=== PATIENT | female | born 1945 | race Caucasian/White ===

== ENCOUNTER 2021-12-21 13:19 | Outpatient (CLI) | payer MEDICARE, BC, SELFPAY ==
--- NOTE | 2021-12-21 13:29 | ECHO_ITS ---
Patient Info Name: Bailey Sharma Age: 76 years : 1945 Gender: Female Ht: 61 in Wt: 145 lbs BSA: 1.70 m2 HR: 47 bpm BP: 167 / 86 mmHg Technical Quality: Good Exam Date: 12/21/2021 1:56 PM Exam Location: [facility] Patient Status: Outpatient Admit Date: 12/21/2021 Staff Ordering Physician: Wyatt Salazar DO Parts Order And Stock Clerk: Renee Norman RDCS Attending Provider: Wyatt Salazar DO Referring Physician: Martin GONZALEZ; Exam Type: CA echo doppler color flow Study Info Indications I35.1 - Nonrheumatic aortic (valve) insufficiency Complete two-dimensional, color flow and Doppler transthoracic echocardiogram is performed. Summary 1. Complete two-dimensional, color flow and Doppler transthoracic echocardiogram is performed. 2. Left ventricular chamber dimension is normal. 3. Left ventricular systolic function is normal, estimated at 60-65%. 4. The left ventricular diastolic function is abnormal. 5. E/e' 13 is mildly elevated. 6. Global longitudinal strain is mildly abnormal at -16.7%. 7. Left atrial chamber dimension is moderately enlarged. 8. There is mild aortic valve sclerosis. 9. There is mild to moderate aortic valve regurgitation. 10. The mitral valve has moderately calcified annulus. 11. There is mild to moderate mitral valve regurgitation. 12. No pulmonary hypertension, estimated pulmonary arterial systolic pressure is 32 mmHg. Left Ventricle E/e' 13 is mildly elevated. Global longitudinal strain is mildly abnormal at -16.7%. Left ventricular chamber dimension is normal. Left ventricular systolic function is normal, estimated at 60-65%. The left ventricular diastolic function is abnormal. Right Ventricle Right ventricular chamber dimension is normal. Right ventricular systolic function is normal. Left Atria Left atrial chamber dimension is moderately enlarged. Right Atria Right atrial chamber dimension is normal. Aortic Valve The aortic valve is trileaflet. There is mild aortic valve sclerosis. There is no aortic valve stenosis. There is mild to moderate aortic valve regurgitation. Pulmonic Valve There is no pulmonic regurgitation. Mitral Valve The mitral valve has moderately calcified annulus. There is no mitral valve stenosis. There is mild to moderate mitral valve regurgitation. Tricuspid Valve There is no tricuspid valve regurgitation. No pulmonary hypertension, estimated pulmonary arterial systolic pressure is 32 mmHg. Pericardium/Pleural There is no pericardial effusion. Inferior Vena Cava Normal inferior vena cava with >50% collapse upon inspiration consistent with normal right atrial pressure, 5 mmHg. Aorta The aortic root size at the sinus of Valsalva is normal. Left Ventricular Outflow Tract Name Value Normal LVOT 2D LVOT Diameter 1.9 cm LVOT Doppler LVOT Peak Gradient 5 mmHg LVOT Mean Gradient 3 mmHg LVOT VTI 31 cm LVOT VTI/AV VTI Ratio 0.7 LVOT Stroke Volume 89 ml LVOT CO
== END 2021-12-21 13:20 | disposition home or self-care (01) ==
LOC: ANHCARD 13:23
PROVIDERS: PCP Internal Medicine; Visit Provider Internal Medicine Cardiovascular Disease
DX: I35.1 Nonrheumatic aortic (valve) insufficiency (principal); I34.0 Nonrheumatic mitral (valve) insufficiency
CPT/HCPCS: 93306

== ENCOUNTER 2022-03-23 19:51 | Emergency (ER) | payer MEDICARE, BC, SELFPAY ==
[2022-03-23] VITALS (25 sets, daily range): BP systolic 151–202; BP diastolic 40–119; PULSE 44–61; RESP 10–17; TEMP 37; O2SAT 99–100
--- NOTE | ~2022-03-23 | XR_ITS ---
EXAMINATION: XR chest 2V Exam Date/Time: 03/23/2022 20:40 CDT HISTORY: WEAKNESS,FATIGUE,X 1 WK,HX HTN Comparison: 09/04/2009. RESULT: Lines, tubes, and devices: Cholecystectomy clips. Lungs and pleura: Clear. Cardiomediastinal silhouette: Stable cardiomediastinal silhouette. Other: No acute osseous or upper abdominal finding. IMPRESSION: No acute cardiopulmonary process. Reviewed, dictated and finalized at location K.
--- NOTE | 2022-03-23 20:37 | ECG_ITS ---
Measurements Intervals Hoffman Rate: 48 P: 41 CO: 177 QRS: 20 QRSD: 94 T: 13 QT: 473 QTc: 424 Interpretive Statements SINUS BRADYCARDIA WITH SINUS ARRHYTHMIA NONSPECIFIC ST SEGMENT CHANGE ABNORMAL ECG NO PREVIOUS ECG AVAILABLE FOR COMPARISON Electronically Signed On 03-25-2022 16:03:58 CDT by Miguel Soria M.D.
--- NOTE | 2022-03-23 20:52 | ED.GENADULT ---
HPI - General Adult General Chief complaint: Weakness Stated complaint: Tired and high BP Time Seen by Provider: 03/23/22 20:25 History of Present Illness HPI narrative: 76-year-old female presenting to the emergency department for evaluation of elevated blood pressure and feelings of tiredness. Patient does take amlodipine and lisinopril for her blood pressure. Patient denies any recent changes in her medications. Patient states that her blood pressure typically runs in the 120/80 range but that over the last 10 days has been persistently elevated. I did not contact the primary care physician till today. At that time she was recommended to present to the emergency room. Patient states that she has also had some increased feelings of tiredness. Patient denies any associated nausea vomiting or diarrhea with this. Patient denies any pain with urination. Patient denies any fevers coughs or colds. Related Data Home Medications Medication Instructions Recorded Confirmed cephalexin 250 mg capsule 250 mg PO DAILY 10/18/21 12/06/21 insulin glargine 100 unit/mL (3 16 unit subcut DAILY 10/18/21 12/06/21 mL) subcutaneous pen (Lantus Solostar U-100 Insulin) Allergies Allergy/AdvReac Type Severity Reaction Status Date / Time metformin AdvReac Intermediate Diarrhea Verified 03/23/22 20:57 Review of Systems Review of Systems: CONSTITUTIONAL: Tiredness and generalized weakness EYES: Denies visual changes, redness, or discharge. ENT: Denies rhinorrhea, congestion, sore throat, or otalgia. CARDIOVASCULAR: Denies chest pain, palpitations, or edema. RESPIRATORY: Denies cough or dyspnea. GASTROINTESTINAL: Denies abdominal pain, nausea, vomiting, or diarrhea. GENITOURINARY: Denies dysuria or hematuria. SKIN: Denies rash or itching. MUSCULOSKELETAL: Denies back pain, joint pain, or myalgia. NEUROLOGIC: Denies headache, numbness, or weakness. [facility] Family History Family History Mother Patient's mother is Diabetes mellitus Hypertension Cerebrovascular accident Sibling Cancer Social History Social History Smoking status: Never smoker Second hand tobacco smoke exposure: No Alcohol intake: current Substance use: never Substance use type: does not use Exam Narrative: APPEARANCE: Well appearing, no pain, no distress, well-nourished. HEAD: normocephalic, atraumatic. EYES: PERRLA/EOMI, conjunctivae clear. NOSE: Normal no drainage THROAT: Pharynx clear, no exudate. NECK: Supple. No adenopathy, no masses. RESPIRATORY: Airway patent, respirations nonlabored. Clear to auscultation bilaterally, no rales, rhonchi, wheezing. CARDIOVASCULAR: Regular rate and rhythm without murmurs rubs or gallops. ABDOMINAL: Soft, nontender, nondistended, normal bowel sounds MUSCULOSKELETAL: Moves all extremities. Strength/ROM intact, No edema, No calf tenderness. NEURO: Alert. Cranial nerves II through XII intact. Grossly intact SKIN: Warm, dry. Normal Color Course Course Emergency Course: Discussed case with the primary care physician and he was comfortable the plan of increasing the patient's lisinopril from 20 to 40 mg daily. He also stated that this medication may take a few days in order for it to become effective and as long as the patient is asymptomatic that she can have close outpatient follow-up. Vital Signs Vital signs: Vital Signs Temperature 98.6 F 03/23/22 19:54 Pulse Rate 61 03/23/22 19:54 Respiratory Rate 16 03/23/22 19:54 Blood Pressure 200/55 H 03/23/22 19:54 Pulse Oximetry 100 03/23/22 19:54 Oxygen Delivery Room Air 03/23/22 19:54 Temperature 98.6 F 03/23/22 19:54 Pulse Rate 82 03/24/22 01:25 Respiratory Rate 18 03/24/22 01:25 Blood Pressure 154/57 H 03/23/22 22:42 Pulse Oximetry 99 03/24/22 01:25 Oxygen Delivery Room Air 03/23/22 19:54
[2022-03-23] MEDS: hydrALAZINE HCL 20 MG/ML VIAL 10 MG IV PUSH (21:18)
[2022-03-23 21:22] LABS: Basophils Percent Auto 0.4 % (0.2-1.2); Eosinophils Absolute Auto 0.1 K/mm3 (0-0.3); Eosinophils Percent Auto 1.3 % (0-4.4); Hematocrit 37.6 % (37.0-47.0); Hemoglobin 12.1 g/dL (12.0-15.0); Immature Granulocyte Absolute 0.07 K/mm3 (0.00-0.031); Immature Granulocyte Percent A 0.8 % (0-0.5); Lymphocytes Absolute Auto 1.76 K/mm3 (0.9-3.2); Lymphocytes Percent Auto 19.5 % (18.3-44.2); Mean Corpuscular HGB Conc 32.2 g/dl (32-36); Mean Corpuscular Hemoglobin 27.2 pg (26-34); Mean Corpuscular Volume 84.5 fl (80-100); Mean Platelet Volume 10.7 fl (7.4-10.4); Monocytes Absolute Auto 0.8 K/mm3 (0.1-0.6); Monocytes Percent Auto 8.6 % (2.6-8.5); Neutrophils Absolute Auto 6.3 K/mm3 (1.3-6.7); Neutrophils Percent Auto 69.4 % (45.5-73.1); Platelet Count Result 230 k/mm3 (150-375); Red Blood Count 4.45 M/mm3 (4.2-5.4); Red Cell Distribution Width 13.3 % (11.5-14.5)
[2022-03-23 21:27] LABS: Alanine Aminotransferase 11 U/L (6-35); Albumin Level 3.7 g/dL (3.5-5.1); Alkaline Phosphatase 83 U/L (38-126); Anion Gap 5 mmol/L (8-16); Aspartate Amino Transferase 19 U/L (14-36); Bilirubin,Total 0.4 mg/dL (0.2-1.3); Blood Urea Nitrogen 16 mg/dL (7-17); Calcium 8.7 mg/dL (8.4-10.2); Carbon Dioxide 26 mmol/L (22-30); Chloride 109 mmol/L (98-107); Estimated CRCL calculation 50 ml/min; Estimated Glomerular Filt Rate > 60; Glucose 175 mg/dL (65-110); Potassium 3.8 mmol/L (3.4-5.0); Sodium 140 mmol/L (137-145)
[2022-03-23 21:42] LABS: NT Pro B Type Natriuretic Pept 315 pg/mL (5-100); Troponin I < 0.012 ng/mL (0.000-0.034)
[2022-03-23] MEDS: lisinopriL 20 MG TABLET PO (22:43)
[2022-03-23 22:58] LABS: Appearance Urine Clear (Clear); Bacteria Urine 4+ /hpf; Bilirubin Urine Negative (Negative); Color Urine Yellow (Yellow); Glucose Urine UA 3+ mg/dL (Negative); Ketones Urine Negative (Negative); Leukocyte Esterase Ur 1+ LEU/UL (Negative); Mucus Urine Few /lpf; Nitrate Urine Positive (Negative); Protein Urine Negative (Negative); Specific Grav Ur 1.015 (1.001-1.035); Squamous Epithelial Cell Urine Occasional /hpf (Few); Urobilinogen Urine 0.2 mg/dL (<2.0); WBC Urine 16-20 /hpf
[2022-03-23 23:06] LABS: Add Urine Microscopic? YES; Blood Urine Trace (Negative)
[2022-03-24 00:17] LABS: Troponin I < 0.012 ng/mL (0.000-0.034)
[2022-03-24 01:25] VITALS: PULSE 82; RESP 18; O2SAT 99
[2022-03-24] MEDS: NITROFURANTOIN MONOHYD MACROCR 100 MG CAP PO (01:25)
== END 2022-03-24 03:28 | disposition home or self-care (01) ==
PROVIDERS: Emergency Provider Emergency Medicine; PCP Internal Medicine
DX: I10 Essential (primary) hypertension (principal); N39.0 Urinary tract infection, site not specified; Z79.4 Long term (current) use of insulin; R00.1 Bradycardia, unspecified
CPT/HCPCS: 36415; 71046; 80053; 81001; 83880; 84484; 85025; 87077; 87086; 87186; 93005; 96374; 99284; A9270; J0360

== ENCOUNTER → 2022-04-06 11:48 | Outpatient (CLI) | payer MEDICARE, BC, SELFPAY ==
--- NOTE | ~2022-04-06 | XR_ITS ---
EXAMINATION: XR shoulder RT min 2V INDICATION: Right shoulder pain TECHNIQUE: Four views of the right shoulder are submitted. COMPARISON: None FINDINGS: Normal alignment. No fracture. There is advanced osteoarthritis of the acromioclavicular tatianna int and mild osteoarthritis of the glenohumeral joint. Soft tissues are unremarkable. IMPRESSION: 1. 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 Reviewed, dictated and finalized at location B.
== END ==
PROVIDERS: PCP Internal Medicine; Visit Provider Internal Medicine
DX: M25.511 Pain in right shoulder (principal); M19.011 Primary osteoarthritis, right shoulder
CPT/HCPCS: 73030

== ENCOUNTER 2022-12-03 11:53 | Emergency (ER) | payer MEDICARE, BC, SELFPAY ==
[2022-12-03 12:08] VITALS: BP 180/63; PULSE 56; RESP 12; TEMP 36.3; O2SAT 100
--- NOTE | 2022-12-03 12:33 | ED.WOUNDLAC ---
HPI - Wound/Laceration General Chief Complaint: Wound/Laceration Stated Complaint: Right Hand Pain Time Seen by Provider: 12/03/22 12:15 Source: patient Mode of arrival: ambulatory Limitations: no limitations History of Present Illness HPI narrative: Bailey is a 77-year-old female patient presenting to the clinic today with complaints of possible wound infection to the right hand. She reports she cut her right hand on a door jam. States this happened on Monday. She denies any fever or chills. There is no bleeding. She is concerned that there is some slight redness around the area. Related Data Home Medications Medication Instructions Recorded Confirmed insulin glargine 100 unit/mL (3 16 unit subcut DAILY 10/18/21 12/03/22 mL) subcutaneous pen (Lantus Solostar U-100 Insulin) Allergies Allergy/AdvReac Type Severity Reaction Status Date / Time metformin AdvReac Intermediate Diarrhea Verified 12/03/22 12:14 Review of Systems Review of Systems: Pertinent positives per HPI. Patient denies any fever, chills, rash, headache, visual changes, dizziness, cough, runny nose, sore throat, shortness of breath, chest pain, palpitations, nausea, vomiting, diarrhea, constipation, abdominal pain, or any urinary issues. PMFSH Past Medical History Medical History Pacemaker Family History Family History Mother Patient's mother is Diabetes mellitus Hypertension Cerebrovascular accident Sibling Cancer Social History Social History Smoking status: Never smoker Second hand tobacco smoke exposure: No Alcohol intake: current Substance use: never Substance use type: does not use Comments At the time of my signature, I reviewed and agree with the nursing past medical, surgical, social, and family history. There is no relevant family history pertinent to the patient complaint. Exam Narrative: General: Well-developed, well nourished, in no apparent distress Head: Normocephalic, atraumatic. Cardio: Regular rate and rhythm, s1 and s2 normal, no murmur appreciated. Resp: Clear to auscultation bilaterally, no rhonchi, rales, wheezing or rubs. Integumentary: Hernandez, warm, and dry, golf ball-sized skin tear to the right hand mild swelling and redness with mild erythema. No purulent discharge Course Course Emergency Course: Portions of this record may have been created with voice recognition software. Level of Care: Express Care Visit Vital Signs Vital signs: Vital Signs Temperature 36.3 C L 12/03/22 12:08 Pulse Rate 56 L 12/03/22 12:08 Respiratory Rate 12 12/03/22 12:08 Blood Pressure 180/63 H 12/03/22 12:08 Pulse Oximetry 100 12/03/22 12:08 Oxygen Delivery Room Air 12/03/22 12:08 Temperature 36.3 C L 12/03/22 12:08 Pulse Rate 56 L 12/03/22 12:08 Respiratory Rate 12 12/03/22 12:08 Blood Pressure 180/63 H 12/03/22 12:08 Pulse Oximetry 100 12/03/22 12:08 Oxygen Delivery Room Air 12/03/22 12:08 Vital signs reviewed MDM - Wound/Laceration MDM Narrative Medical decision making narrative: At the time of visit patient is resting comfortably on the exam table. There is mild redness around the wound to the right hand. Will send in prescription for mupirocin however patient is adamant about getting a antibiotic as she is diabetic and she is concerned that the infection will get worse. Discussed risk and benefits with the patient and I will go ahead and give Keflex and mupirocin cream to the patient. Patient voiced understanding of discharge instructions and agrees to treatment plan Differential Diagnosis Differential diagnosis: Likely abrasion, avulsion of skin and other (Skin tear) Discharge Plan Discharge Clinical Impression: ISTAP type 1 infected skin tear
== END 2022-12-03 12:43 | disposition home or self-care (01) ==
PROVIDERS: Emergency Provider Nurse Practitioner Family; PCP Internal Medicine
DX: S61.401A Unspecified open wound of right hand, initial encounter (principal); L08.9 Local infection of the skin and subcutaneous tissue, unspecified; E11.9 Type 2 diabetes mellitus without complications; Z79.4 Long term (current) use of insulin; W45.8XXA Other foreign body or object entering through skin, initial encounter
CPT/HCPCS: 99213; G0463

== ENCOUNTER 2024-07-11 11:31 | Outpatient (CLI) | payer MEDICARE, BC, SELFPAY ==
--- NOTE | ~2024-07-11 | MM_ITS ---
EXAMINATION: MM screening padmaja BI w eli HISTORY: Screening TECHNIQUE: Craniocaudal and mediolateral oblique 3-D tomosynthesis images were obtained and synthetic 2-D images were generated. CAD analysis was submitted and interpreted. COMPARISON: No prior mammogram is available for comparison at this institution. BREAST PARENCHYMAL COMPOSITION: Dense: The breasts are heterogeneously dense, which may obscure small masses FINDINGS: There are bilateral breast asymmetries in the periareolar and upper outer quadrants of both breasts, likely benign fibroglandular tissue, although comparison outside mammograms recommended. IMPRESSION: 1. Bilateral breast asymmetries. 2. Comparison to prior outside mammograms recommended. BI-RADS Category 0: Incomplete: Needs additional imaging evaluation. Reviewed, dictated and finalized at location B.
== END 2024-07-11 11:32 | disposition home or self-care (01) ==
PROVIDERS: PCP Nurse Practitioner; Visit Provider Nurse Practitioner
DX: Z12.31 Encounter for screening mammogram for malignant neoplasm of breast (principal)
CPT/HCPCS: 77063; 77067

== ENCOUNTER 2024-11-12 15:17 | Outpatient (CLI) | payer MEDICARE, BC, SELFPAY ==
--- NOTE | ~2024-11-12 | XR_ITS ---
XR chest 2V 11/12/2024 15:37 Indication: Back pain Procedure: 2 view chest Comparison: 03/23/2022 Findings: Heart size normal. No focal air space disease, pulmonary edema, pleural effusion or suspect ed pneumothorax. Pacemaker leads in expected position. There are cholecystectomy clips. Impression: 1: No acute cardiopulmonary disease Reviewed, dictated and finalized at location B. HOUSE UNLOADER Impression: 1: No acute cardiopulmonary disease
--- OUTSIDE RECORDS SUMMARY | 2024-11-12 16:00 | XMS_ITS | Referral Summary ---
Author Organization [facility] Address [address] [place] [address] Care Team Providers Care Reverberatory Furnace Operator Name Role Phone Chadwick Morel MD Unavailable [phone] Edelmira Arango NP Unavailable [phone] Cirilo Brown MD Primary Care Provider [phone] Encounters Date Type Department Care Team Description 09/02/2024 10:15 AM ELECTRONIC PAGE MAKEUP SYSTEM OPERATOR Ancillary Procedure [facility] [address] [address] Presence of cardiac pacemaker (Primary Dx); SSS (sick sinus syndrome) ([facility]) ([facility]) from Last 3 Months Allergies Active Allergy Reactions Criticality Noted Date Comments Metformin Diarrhea Low 01/17/2022 Medications sertraline (ZOLOFT) 25 mg tablet Take 1 tablet (25 mg total) by mouth daily 0 Active traZODone (DESYREL) 50 mg tablet Take 0.5 tablets (25 mg total) by mouth nightly as needed for sleep Active lisinopriL (PRINIVIL,ZEST RIL) 40 mg tablet Take 1 tablet (40 mg total) by mouth daily 3 Active pen needle, diabetic (Pen Needle) 31 gauge x 5/16 needleIndicati ons:Type 2 diabetes mellitus with diabetic polyneuropathy , with long-term current use of insulin (HCC) Use to inject insulin once daily 100 each 3 3 Active lancets (Accu-Chek Fastclix Lancet Drum) miscIndication s:Type 2 diabetes mellitus with diabetic polyneuropathy , with long-term current use of insulin ([facility]) USE DAILY DIRECTED 100 each 3 4 Active Farxiga 10 mg tabletIndicati ons:Type 2 diabetes mellitus with diabetic polyneuropathy , with long-term current use of insulin ([facility]) Take 1 tablet (10 mg total) by mouth daily 90 tablet 3 4 Active BD Ronit 2nd Gen Pen Needle 32 gauge x 32 needle USE TO INJECT INSULIN ONCE DAILY 4 Active atorvastatin (LIPITOR) 10 mg tabletIndicati ons:Hyperlipid emia associated with type 2 diabetes mellitus ([facility]) Take 1 tablet (10 mg total) by mouth daily 90 tablet 3 4 025 Active amLODIPine (NORVASC) 5 mg tabletIndicati ons:Hypertensi on associated with diabetes ([facility]) Take 1 tablet (5 mg total) by mouth daily 90 tablet 3 4 025 Active insulin glargine 100 unit/mL (3 mL) pen for injectionIndic ations:Type 2 diabetes mellitus with diabetic polyneuropathy , with long-term current use of insulin ([facility]) Inject 10 Units under the skin daily 15 mL 2 4 025 Active Accu-Chek Guide test strips stripIndicatio ns:Type 2 diabetes mellitus with diabetic polyneuropathy , with long-term current use of insulin ([facility]) Check blood sugar daily 100 strip 3 4 Active Januvia 100 mg tabletIndicati ons:Type 2 diabetes mellitus with diabetic polyneuropathy , with long-term current use of insulin ([facility]) TAKE 1 TABLET(100 MG) BY MOUTH DAILY 90 tablet 3 5 Active Januvia 100 mg tabletIndicati ons:Type 2 diabetes mellitus with diabetic polyneuropathy , with long-term current use of insulin ([facility]) TAKE 1 TABLET(100 MG) BY MOUTH DAILY 90 tablet 3 4 025 Discontinued Active Problems Problem Noted Date Diagnosed Date Sinus node dysfunction (CMS/HCC) 07/05/2024 Tinnitus of both ears 09/14/2023 Presence of cardiac pacemaker 07/17/2023 Assessment & Plan (07/05/2024 1:06 PM CDT): Sinus node dysfunction, status post dual-chamber pacemaker. The patient's device was interrogated and found to be functioning appropriately. No substantial changes to programming were made. The patient is enrolled in the [facility], and we will continue to follow with remote monitoring when possible, and in-office device checks when necessary. The patient will follow-up with me in 12 months for an office visit and twelve- lead ECG. Assessment & Plan (07/17/2023 10:28 AM CDT): -status post dual-chamber pac[place] [address] Reece -Device interrogation today showed 66% RA pacing and less than 1% RV pacing. -8.5 years to ERICKA. -Atrial arrhythmia burden remains low at less than 1%. -the medication changes were made today -she would like to establish care with a general civil engineering assistant -The patient's device was interrogated today and found to be functioning appropriately. No significant programming changes were made at this time. The patient will continue to be followed through the [facility] device clinic remotely and with in office device interrogations as needed. EKG upon my review today demonstrates sinus rhythm (50) with normal [place], QRS duration, and QT interval. -follow-up in 1 year for a 12 lead EKG, device interrogation, and clinic visit Atrial fibrillation (CMS/HCC) 07/17/2023 Assessment & Plan (07/17/2023 8:28 AM CDT): -atrial arrhythmia burden remains low on device interrogation today, it was less than 1% Bradycardia 03/26/2022 Assessment & Plan (07/17/2023 8:28 AM CDT): -status post dual-chamber pacemaker placement with Dr. Reece in 2021 Type 2 diabetes mellitus wit h diabetic polyneuropathy, with long-term current use of insulin 01/17/2022 Assessment & Plan (07/11/2024 10:48 AM CDT): Chronic problem. A1c has improved from 7.3% 01/15/24 to now 7.1%. no changes at this time. Brought in BG meter & reviewed during appt. Current medications: Januvia 100mg daily Farxiga 10mg daily Basaglar 8-10 units daily Will update labs. Verified that she uses [facility]. Aware to check results/results letter in [facility]. Will contact by phone if needed. UTD on DM eye exam (05/02/23 no DMR/DME). Saw last week at [facility] [place]; letter sent to get report. Strive for regular exercise (30min most days) and diet (get at least 4-5 servings of fruit and veggies daily, avoid processed foods, increase lean protein intake and decrease carb portions as well as fruit juices, regular soda & desserts). Watch carbs and simple sugars. Check the blood sugar daily. Check the feet daily for skin breakdown and infection. Assessment & Plan (01/15/2024 10:52 AM CDT): Chronic problem. A1c has greatly improved from 9.2% 09/11/23 to now 7.2%. no changes at this time. Brought in BG meter & reviewed during appt. Current medications: Januvia 100mg daily Farxiga 10mg daily Basaglar 10 units daily UTD on labs. UTD on DM eye exam (05/2023) Strive for regular exercise (30min most days) and diet (get at least 4-5 servings of fruit and veggies daily, avoid processed foods, increase lean protein intake and decrease carb portions as well as fruit juices, regular soda & desserts). Watch carbs and simple sugars. Check the blood sugar daily. Check the feet daily for skin breakdown and infection. Assessment & Plan (09/11/2023 10:48 AM ELECTRONIC PAGE MAKEUP SYSTEM OPERATOR): Chronic problem. A1c has greatly worsened from 7.0% 05/2023 to now 9.2% after med changes 05/2023. Will restart the basaglar 10 units every day. To send [employer] message with update if any questions/concerns. Current medications: Januvia 100mg daily Farxiga 10mg daily Basaglar 10 units daily UTD on labs. UTD on DM eye exam (05/2023) Strive for regular exercise (30min most days) and diet (get at least 4-5 servings of fruit and veggies daily, avoid processed foods, increase lean protein intake and decrease carb portions as well as fruit juices, regular soda & desserts). Watch carbs and simple sugars. Check the blood sugar daily. Check the feet daily for skin breakdown and infection. Assessment & Plan (05/22/2023 10:38 AM CDT): Chronic, overall fairly controlled A1c 7.0% Occasional low blood sugars in morning Plan to stop Basaglar and glimepiride Start Farxiga 10 mg oral daily Continue Januvia 100 mg oral daily Labs today Up-to-date with eye exam Daily foot care Follow-up in 3 months Assessment & Plan (11/07/2022 12:04 PM ELECTRONIC PAGE MAKEUP SYSTEM OPERATOR): Chronic, overall fairly controlled Advise to decrease basaglar to 10 units SQ daily Continue current dose of Januvia and Glimepiride Explained sick day rules Educated on hypoglycemia Will obtain pt last eye exam copy Daily foot care Follow up in 6 months Assessment & Plan (05/09/2022 10:40 AM CDT): Chronic, overall well controlled with out hypoglycemia Continue current medication regimen Advised pt to stop glimepiride if having any mid day hypoglycemia Explained sick day rules Educated on hypoglycemia Will obtain pt last eye exam copy Daily foot care Follow up in 6 months Assessment & Plan (01/17/2022 11:59 AM CDT): Chronic, complicated by hypoglycemia A1c 6.2% Reviewed patient blood sugar Noted fasting hypoglycemia and occasional midday hypoglycemia - advised patient to decrease Lantus to 12 units subQ daily Continue current dose of Januvia and glimepiride - advised patient to check blood sugar before breakfast and before dinner and send me blood sugar log in 4 weeks - plan to cut back on glimepiride if still having low blood sugars - goal A1c for this patient is between 6.5-7.5% without low blood sugars - will try to obtain patient recent labs from PCP Also obtain patient last eye exam copy Daily foot care Follow-up in 3 months Hypertension associated with diabetes 01/17/2022 Assessment & Plan (07/11/2024 10:40 AM CDT): Chronic problem. Controlled on current Lisinopril 40mg daily, amlodipine 5mg daily Will update labs. Verified that she uses [facility]. Aware to check results/results letter in [employer]. Will contact by phone if needed. Assessment & Plan (01/15/2024 10:07 AM CDT): Chronic problem. Controlled on current Lisinopril 40mg daily, amlodipine 5mg daily Assessment & Plan (09/11/2023 10:03 AM ELECTRONIC PAGE MAKEUP SYSTEM OPERATOR): Chronic problem. Controlled on current Lisinopril 40mg daily, amlodipine 5mg daily Assessment & Plan (05/22/2023 10:37 AM CDT): Chronic, uncontrolled Increase amlodipine to 5 mg Continue lisinopril 20 mg oral daily Advised home blood pressure monitoring Low-salt diet Follow-up in 3 months Assessment & Plan (11/07/2022 12:03 PM ELECTRONIC PAGE MAKEUP SYSTEM OPERATOR): Pt has white coat syndrome BP today high But home BP readings are normal as per pt Advise to continue current Lisinopril and amlodipine dose Advise to follow up with Cardiology Assessment & Plan (05/09/2022 10:41 AM CDT): Chronic, well controlled for pt age Following with Cardiology Assessment & Plan (01/17/2022 11:59 AM CDT): Chronic overall well controlled for patient age Hyperlipidemia associated with type 2 diabetes [place] 01/17/2022 Assessment & Plan (07/11/2024 10:40 AM CDT): Chronic problem. Currently taking Atorvastatin 10mg. Last lipid panel: 05/22/23 ZPH=988, TG=84. Will update labs. Verified that she uses [employer]. Aware to check results/results letter in [employer]. Will contact by phone if needed. Assessment & Plan (01/15/2024 10:07 AM CDT): Chronic problem. Currently taking Atorvastatin 10mg. Last lipid panel: 05/22/23 HEY=132, TG=84. Assessment & Plan (09/11/2023 10:04 AM ELECTRONIC PAGE MAKEUP SYSTEM OPERATOR): Chronic problem. Currently taking Atorvastatin 10mg. Last lipid panel: 05/22/23 TII=806, TG=84. Assessment & Plan (05/22/2023 10:38 AM CDT): Chronic, stable Continue statin therapy Recheck lipid panel today Assessment & Plan (11/07/2022 12:02 PM ELECTRONIC PAGE MAKEUP SYSTEM OPERATOR): Patient on statin therapy Tolerating well Assessment & Plan (05/09/2022 10:41 AM CDT): Patient on statin therapy Tolerating well Assessment & Plan (01/17/2022 12:00 PM CDT): Patient on statin therapy Tolerating well Acute posthemorrhagic anemia 03/19/2020 Hematochezia in 03/19/2020 Hemorrhagic diarrhea 03/19/2020 Left sided colitis 03/19/2020 Mass of pancreas 03/19/2020 Physical deconditioning 03/19/2020 Uncontrolled stage 2 hypertension 03/19/2020 Sensorineural hearing loss (SNHL) of both ears 0 03/19/2020 Dysfunction of left eustachian tube 03/19/2020 SOB (shortness of breath) Hypertensive urgency Resolved Problems Problem Noted Date Diagnosed Date Resolved Date 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 ([facility]/HCC) 03/19/2020 07/11/2024 Well child examination 03/19/202007/11 Immunizations Name Administration Dates Next Due Hep B, Adolescent or Pediatric 12/15/2011 Influenza, Quadrivalent, Spl it, Preservative Free, Intramuscular 07/12/2020,07/09/2019 Influenza, Trivalent, Adjuva nted, Intramuscular 2018 Influenza, Trivalent, High D ose, Split, Preservative Free, Intramuscular 07/05/2017,07/06/2016,07/07/2015,06/23 Influenza, Trivalent, IM (MDV) 07/16/2013 Influenza, Unspecified 08/01/2019 Moderna SARS-CoV-2 Monovalen t Vaccination (12+ YRS) 12/22/2020,11/12/2020 Pneumococcal Conjugate PCV 13 2018 Td, adsorbed 12/15/2011 Social History Tobacco Use Types Packs/Day Years Used Date Smoking Tobacco: Never Smokeless Tobacco: Never Tobacco Cessation:Counseling Given: Not Answered Alcohol Use Standard Drinks/Week Comments Yes 0 (1 standard drink = 0.6 oz pur e alcohol) PHQ-2 Answer Date Recorded PHQ-2 Total Score (If total score is 3 or more points, staff should administer the PHQ-9) 0 05/09/2022 Comments Unknown Sex and Gender Information Value Date Recorded Sex Assigned at Not on file Legal Sex Female 2:33 AM ELECTRONIC PAGE MAKEUP SYSTEM OPERATOR Gender Identity Female 05/11/2022 8:58 AM CDT Sexual Orientation Not on file Last Filed Vital Signs Vital Sign Reading Time Taken Comments Blood Pressure 122/62 07/11/2024 10:16 AM CDT Pulse 50 07/11/2024 10:16 AM CDT Temperature 36.6 C (97.8 F) 03/28/2022 4:35 PM CDT Respiratory Rate 14 07/11/2024 10:16 AM CDT Oxygen Saturation 98% 10/03/2023 10:28 AM ELECTRONIC PAGE MAKEUP SYSTEM OPERATOR Inhaled Oxygen Concentration - - Weight 56.7 kg (125 lb) 07/11/2024 10:16 AM CDT Height 152.4 cm (5') 07/11/2024 10:16 AM CDT Body Mass Index 24.41 07/11/2024 10:16 AM CDT Plan of Treatment Not on file Medical Devices Implanted Type Area Payroll Accounting Clerk Device Identifier Shelf Expiration Date Model / Serial / Lot [employer] Feng Lead 7841 Endocardial Pacing Mr Is-1 Bipolar Connection 7841 - [id number] - [id number] Implanted:Qty: 1 on 05/24/2022 by Chacho Reece MD at [facility] Lead [employer] [id number] 05/10/2024 7841 / [id number] / [employer] Feng Lead 7840 Endocardial Pacing Mr Is-1 Bipolar Connection 7840 - [id number] - [id number] Implanted:Qty: 1 on 05/24/2022 by Chacho Reece MD at [facility] Lead [employer] Feng [id number] 12/25/2022 7840 / [id number] / [employer] C.R.M. Essentio 4.45x5.02cm 2 Chamber Is1 Connector .75cm Pacemaker 13.7 L111 - [id number] - [id number] Implanted:Qty: 1 on 05/24/2022 by Chacho Reece MD at [facility] Pacemaker [employer] C.R.M. [id number] 03/26/2024 L111 / [id number] / Procedures Procedure Name Priority Date/Time Associated Diagnosis Comments DEVICE CHECK - REMOTE Routine 09/02/2024 11:55 AM ELECTRONIC PAGE MAKEUP SYSTEM OPERATOR SSS (sick sinus syndrome) (CMS/HCC) (HCC) EGFR Routine 07/17/2024 3:40 PM CDT Type 2 diabetes mellitus with diabetic polyneuropathy, with long-term current use of insulin (HCC) Hypertension associated with diabetes (HCC) LIPID PANEL Routine 07/17/2024 3:40 PM CDT Type 2 diabetes mellitus with diabetic polyneuropathy, with long-term current use of insulin (HCC) Hyperlipidemia associated with type 2 diabetes mellitus (HCC) ALBUMIN CREATININE RATIO, URINE Routine 07/17/2024 3:40 PM CDT Type 2 diabetes mellitus with diabetic polyneuropathy, with long-term current use of insulin (HCC) POCT HEMOGLOBIN A1C Routine 07/11/2024 10:19 AM CDT Type 2 diabetes mellitus with diabetic polyneuropathy, with long-term current use of insulin (HCC) HM DIABETES EYE EXAM Routine 05/02/2023 8:12 AM CDT SCREENING MAMMOGRAM BILATERAL W RAJINDER Schedule Routine, Read Routine (OP Routine) 06/24/2022 10:24 AM CDT Screening mammogram, encounter for from Last 3 Months or Most Recently Relevant to Health Maintenance Results * DEVICE CHECK - REMOTE (09/02/2024 11:55 AM ELECTRONIC PAGE MAKEUP SYSTEM OPERATOR) Anatomical Region Laterality Modality Other Narrative 09/07/2024 1:46 PM ELECTRONIC PAGE MAKEUP SYSTEM OPERATOR Table formatting from the original result was not included. PM CHECK (REMOTE) Patient ID: Bailey Cuellar is a 79 y.o. female This patient received a [employer] Pacemaker. They had a routine remote transmission on 09/02/2024. Device implant indications: Sick sinus Interrogation of the patient's device demonstrates the following: Presenting EGM: A paced V sense @ 50 bpm Original Device Settings Right Atrium Right Ventricle Sensitivity (mV) 0.2 mV 2.5 mV Pacing Outputs 2.5 V @ 0.4 ms 1.4 V @ 0.4 ms Testing Measurements Right Atrium Right Ventricle Sensitivity (mV) Not done mV 15 mV Impedence (Ohms) 721 ohms 1109 ohms Pace Threshold Not done V @ ms 0.8 V @ 0.4 ms Pacing % 65 % 1 % Battery Status: 7.5 years to ERICKA Episodes last 90 days/Comments: AF [place] 0 % No new ventricular event. NORMAL DEVICE FUNCTION PROGRAMMED MEDICATIONS: Anti-coagulant(s): None Anti-arrhythmic(s): Norvasc 5 mg daily PLAN: 1) normal [employer] Pacemaker evaluation 2) [employer] remote transmission scheduled in 3 months. 3) Programming appropriate for device measurements Jaclyn Flores RN us Andrea Mccarthy MD [facility] PRO CEDURES Final Result * eGFR (07/17/2024 3:40 PM CDT) eGFR >90 >=60 mL/min/1. 73 m2 Comment: Interpretive Data Reference Interval Normal >/= 90 mL/min/1.73m2 Mildly decreased* 60 - 89 mL/min/1.73m2 Mildly to moderately decreased 45 - 59 mL/min/1.73m2 Moderately to severely decreased 30 - 44 mL/min/1.73m2 Severely decreased 15 - 29 mL/min/1.73m2 Kidney Failure < 15 mL/min/1.73m2 *Relative to young adult level Estimated glomerular filtration rate is determined by the 2020 CKD-EPI equation recommended by the National Kidney Foundation (A Unifying Approach to GFR Estimation: Recommendations of the NKF-ASK Task Force on Reassessing the Inclusion of Race in Diagnosing Kidney Disease, JASN 2020). The CKD-EPI equation should not be used for patients with unstable renal function and has not been validated in children and those over 70. Current interpretive data was last reviewed 2021. Blood 07/17/2024 3:40 PM CDT 07/17/2024 4:14 PM CDT us Lulatresa Abernathy AGENCY SALES REPRESENTATIVE LAB BLOOD ORDERABLES Adriana l Result Performing Organization Address [facility] de Phone Number ANIKABRANDYN LAWTON [address] [email or web address] [address] * (ABNORMAL) Albumin Creatinine Ratio, Urine (07/17/2024 3:40 PM CDT) Albumin Ur 16.9 mg/L Comment: Interpretive Data No reference range established. Current interpretive data was last revised 2019. Creatinine Ur 50.6 mg/dL [facility] Comment: Interpretive Data No reference range established. Current interpretive data was last revised 2019. Albumin Creatinine Ratio, Ur 33(H) 1 - 29 mg/g PRICILLA Urine 07/17/2024 3:40 PM CDT 07/17/2024 4:07 PM CDT us Lula Abernathy NP LAB URINE ORDERABLES Adriana l Result Performing Organization Address [facility] Co de Phone Number PRICILLA [address] [employer] [place], [place] [id number] * Lipid panel (07/17/2024 3:40 PM CDT) Cholesterol 138 30 - 199 mg/dL Comment: Interpretive Data Ages < or = 19 years Acceptable: <170 mg/dL Borderline high: 170-199 mg/dL High: >or= 200 mg/dL Ages > or = 20 years Desirable: <200 mg/dL Borderline high: 200-239 mg/dL High: >or= 240 mg/dL Literature References: 1. Expert Panel on Integrated Guidelines for Cardiovascular Health and Risk Reduction in Children and Adolescents. Pediatrics 2011;128:S213 2. NCEP Expert Panel. Circulation 2004;110:227 Current Interpretive Data was last revised on 2018. Triglycerides 80 <=149 mg/dL PRICILLA LAWTON Comment: Interpretive Data Ages < or = 9 years Acceptable: <75 mg/dL Borderline high: 75-99 mg/dL High: >or= 100 mg/dL Ages 10 to 20 years Acceptable: <90 mg/dL Borderline high: 90-129 mg/dL High: >or= 130 mg/dL Ages > or = 20 years Desirable: <150 mg/dL Borderline high: 150-199 mg/dL High: 200-499 mg/dL Very high: >or= 499 mg/dL Literature References: 1. Expert Panel on Integrated Guidelines for Cardiovascular Health and Risk Reduction in Children and Adolescents. Pediatrics 2011;128:S213 2. NCEP Expert Panel. Circulation 2004;110:227 Current Interpretive Data was last revised on 2018. HDL 62 >=40 mg/dL PRICILLA LAWTON Comment: Interpretive Data Ages < or = 19 years Acceptable: >45 mg/dL Borderline low: 40-45 mg/dL Low: <40 mg/dL Ages > or = 20 years Desirable: >or= 60 mg/dL Low: <40 mg/dL Literature References: 1. Expert Panel on Integrated Guidelines for Cardiovascular Health and Risk Reduction in Children and Adolescents. Pediatrics 2011;128:S213 2. NCEP Expert Panel. Circulation 2004;110:227 Current Interpretive Data was last revised on 2018. LDL, calculated 60 <=129 mg/dL PRICILLA LAWTON Comment: Interpretive Data Ages < or = 19 years Acceptable: <110 mg/dL Borderline high: 110-129 mg/dL High: >or= 130 mg/dL Ages > or = 20 years Optimal: <100 mg/dL Near optimal: 100-129 mg/dL Borderline high: 130-159 mg/dL High: >160 mg/dL Calculated using the Matos LDL-C estimating equation. This equation was implemented on 2024. Prior to this date LDL-C was estimated using the Friedewald equation. Literature References: 1. Expert Panel on Integrated Guidelines for Cardiovascular Health and Risk Reduction in Children and Adolescents. Pediatrics 2011;128:S213 2. NCEP Expert Panel. Circulation 2004;110:227 3. Carlo Wang et al. OLENA Cardiol. 2019January 30;5(5):540-548. doi: [email or web address] Current Interpretive Data was last revised on 2024. Non-HDL Cholesterol 76 mg/dL PRICILLA LAWTON Comment: Interpretive Data Ages < or = 19 years Acceptable: <120 mg/dL Borderline high: 120-144 mg/dL High: >145 mg/dL Ages > or = 20 years When triglycerides are >200 mg/dL, Non-HDL cholesterol is a secondary target of therapy with treatment goals that are 30 mg/dL greater than the LDL cholesterol target. Literature References: 1. Expert Panel on Integrated Guidelines for Cardiovascular Health and Risk Reduction in Children and Adolescents. Pediatrics 2011;128:S213 2. NCEP Expert Panel. Circulation 2004;110:227 Current Interpretive Data was last revised on 2018. Chol/HDL ratio 2 PRICILLA LAWTON Blood 07/17/2024 3:40 PM CDT 07/17/2024 4:07 PM CDT Lula Abernathy NP LAB BLOOD ORDERABLES Adriana l Result PRICILLA LAWTON [address] Department [place] [address] * (ABNORMAL) POCT hemoglobin A1c (07/11/2024 10:19 AM CDT) Hemoglobin A1C, POC 7.1 4.0 - 5.6 % Blood 07/11/2024 10:1 9 AM CDT Lula Abernathy NP POINT OF CARE TEST ORDERA BLES Final Result * DIABETES EYE EXAM (05/02/2023 8:12 AM CDT) us Historical Provider HEALTH MAINTENANCE Edited Result - Final * Screening Mammogram Bilateral W Rajinder (06/24/2022 10:24 AM CDT) Anatomical Region Laterality Modality Breast Bilateral Mammography Narrative 06/27/2022 9:44 AM CDT Mammogram Technique: Bilateral Digital Breast Tomosynthesis, Bilateral C-view 2D Screening mammogram. Views obtained: bilateral craniocaudal and bilateral mediolateral oblique. Computer Aided Detection was performed. Mammogram Findings: The present examination has been compared to prior imaging studies performed at [facility] on 06/06/2018, 06/12/2019 and 05/04/2021. The breasts are heterogeneously dense, which may obscure small masses. There are calcifications in both breasts. Finding remains unchanged from the prior study. Impression: Calcifications in both breasts are benign. Annual screening mammography is recommended. OVERALL FINAL ASSESSMENT: BI-RADS CATEGORY 2: Benign. Procedure Note Silvana Blake MD - 06/27/2022 Mammogram Technique: Bilateral Digital Breast Tomosynthesis, Bilateral C-view 2D Screening mammogram. Views obtained: bilateral craniocaudal and bilateral mediolateral oblique. Computer Aided Detection was performed. Mammogram Findings: The present examination has been compared to prior imaging studies performed at [facility] on 06/06/2018,06/12/2019 and 05/04/2021. The breasts are heterogeneously dense, which may obscure small masses. There are calcifications in both breasts. Finding remains unchanged from the prior study. Impression: Calcifications in both breasts are benign. Annual screening mammography is recommended. OVERALL FINAL ASSESSMENT: BI-RADS CATEGORY 2: Benign. us Self Screening Mammogram IMG MAMMO PROCEDURES Fi nal Result from Last 3 Months or Most Recently Relevant to [place] [address] MEDICARE [facility] [address] MEDICARE [facility] MEDICARE [facility] Advance Directives For more information, please contact: [phone] * Full Code (Latest Code Status on File) Date Activated Date Inactivated Comments 03/26/2022 5:53 AM 03/28/2022 9:56 PM Care Teams Reverberatory Furnace Operator Relationship Specialty Start Date End Date Cirilo Brown MD [address] [facility] 162 [facility] [address] [place] [address] PCP - General Internal Medicine 09/06/23 Chadwick Morel MD [address] [address] 10/11/19 Edelmira Arango NP [address] [address] Nurse Practitioner Cardiology 03/28/22
--- OUTSIDE RECORDS SUMMARY | 2024-11-12 16:00 | XMS_ITS | Patient Health Summary ---
Author Organization [facility] Address [address] [facility] [place] [address] Care Team Providers Care Plant Health Care Technician Name Role Phone Cirilo Brown DO Primary Care Provider [phone] Note from [facility],non-owned Affiliates and Associated Physician Practices is amultiple site organization consisting of ambulatory clinics and hospital sitesin [place], [place], [place] and [place]. This disclosure is being madepursuant to the Care Everywhere program and may not contain all information available regarding this patient. Last updated 18.[facility] [place] Social History Tobacco Use Types Packs/Day Years Used Date Smoking Tobacco: Never Assessed Sex and Gender Information Value Date Recorded Sex Assigned at Not on file Gender Identity Not on file Sexual Orientation Not on file Procedures * DERMATOPATHOLOGY(Performed 10/09/2024) * DERMATOPATHOLOGY(Performed 04/08/2021) Results * DERMATOPATHOLOGY (10/09/2024 11:05 AM PIG MACHINE SUPERVISOR) Only the most recent of2 resultswithin the time period is included. Case Report Dermatopathology Report Case: [id number] Authorizing Provider: Yaneli Stevenson, Collected: 10/09/2024 11:05 AM SAND SCREENER-DRY CLEANING SUPERVISOR Ordering Location: [facility] - Received: 10/09/2024 03:50 PM DermPath Lab Pathologist: Yoselin Vega MD Specimen: Skin, left lat ankle 12:33 PM PIG MACHINE SUPERVISOR DERMATOPATHOLOGY LABORATORY Amended Report Change in site to left lat ankle, per faxed request from office. 12:33 PM PIG MACHINE SUPERVISOR DERMATOPATHOLOGY LABORATORY Final Diagnosis Specimen A. SKIN, left lat ankle: PSORIASIFORM DERMATITIS (L44.8) (see microscopic description and comment) 12:33 PM PIG MACHINE SUPERVISOR DERMATOPATHOLOGY LABORATORY Amendment electronically signed by Yoselin Vega MD on 10/16/2024 at 12:33 PM Clinical History SK vs Other; Growing Irritated Non-healing. 12:33 PM [facility] DERMATOPATHOLOGY LABORATORY Gross Description Specimen A: Received is one formalin filled container labeled with the patient's name. The specimen consists of a shave biopsy (3 pieces) measuring [id number],12x4x1,17x6 x1 mm. Jar 0. 12:33 PM [facility] DERMATOPATHOLOGY LABORATORY Microscopic Description Specimen A. SKIN, left lat ankle: There is psoriasiform hyperplasia of the epidermis with focal parakeratosis and spongiosis. There is a superficial, mainly lymphohistiocytic inflammatory infiltrate. Additional deeper sections were obtained and reviewed. The hematoxylin and eosin stain is reviewed; immunohistochemical and special stains are performed to further characterize this process. IL36 does not display increased expression. Grocott's methenamine silver (GMS) stain fails to highlight fungal elements in the available sections. COMMENT: The histological differential diagnosis includes psoriasis or a psoriasiform keratosis if solitary. A chronic eczematous process sis also a consideration but less favored. Clinicopathologic correlation is recommended. 12:33 PM [facility] DERMATOPATHOLOGY LABORATORY Disclaimer An external and internal positive and negative controls are appropriate for the histochemical, immunohistochemical and immunofluorescence stain(s) in this case (if any), except where stated explicitly. The performance characteristics of the stain(s) cited in this report were developed and its performance characteristic determined by the Dermatopathology Laboratory at [facility], directed by Dr. Tino Young. These tests need not be, and therefore are not, approved by the [place] Food and Drug Administration. The tests are used for clinical purposes. Billing Codes Specimen Charges Stain Charges 51474 1 99960 97584 1 1 12:33 PM [facility] DERMATOPATHOLOGY LABORATORY Embedded Images 12:33 PM [facility] DERMATOPATHOLOGY LABORATORY Pathology/Cytolo gy TISSUE SPECIMEN FROM SKIN / Unknown 10/09/2024 11:05 AM PIG MACHINE SUPERVISOR 10/09/2024 3:50 PM PIG MACHINE SUPERVISOR Yaneli Stevenson SAND SCREENER-DRY CLEANING SUPERVISOR LAB - PATH OLOGY/CYTOLOGY ORDERABLES DERMATOPATHOLOGY LABORATORY [facility] - Department of Dermatology [facility] Medicine [facility], 3rd Floor [address] [phone] Care Teams Plant Health Care Technician Relationship Specialty Start Date End Date Cirilo Brown DO [address] [facility] [address] [place], [place] [id number] PCP - General 04/08/21
--- OUTSIDE RECORDS SUMMARY | 2024-11-12 16:00 | XMS_ITS | Encounter Summary ---
Author Organization [facility] Address [address] [facility] [place] [address] Care Team Providers Care Office Correspondent Name Role Phone Cirilo Brown DO Primary Care Provider [phone] Encounter Details Date Type Department Care Team (Late st Contact Info) Description 10/09/2024 Lab Requisition [facility] - DermPath Lab [address] [place] [address] Yaneli Stevenson APRN-PRODUCT DEVELOPMENT [address] [place] [address] Social History Tobacco Use Types Packs/Day Years Used Date Smoking Tobacco: Never Assessed Sex and Gender Information Value Date Recorded Sex Assigned at Not on file Gender Identity Not on file Sexual Orientation Not on file documented as of this encounter Plan of Treatment Not on file documented as of this encounter Procedures Procedure Name Priority Date/Time Associated Diagnosis Comments DERMATOPATHOLOGY Routine 10/09/2024 11:0 5 AM RAT POISONER documented in this encounter Results * DERMATOPATHOLOGY (10/09/2024 11:05 AM RAT POISONER) Case Report Dermatopathology Report Case: [id number] Authorizing Provider: Yaneli Stevenson, Collected: 10/09/2024 11:05 AM LABORER FILTER PLANT-PRODUCT DEVELOPMENT Ordering Location: [facility] - Received: 10/09/2024 03:50 PM DermPath Lab Pathologist: Yoselin Vega MD Specimen: Skin, left lat ankle 12:33 PM RAT POISONER DERMATOPATHOLOGY LABORATORY Amended Report Change in site to left lat ankle, per faxed request from office. 12:33 PM RAT POISONER DERMATOPATHOLOGY LABORATORY Final Diagnosis Specimen A. SKIN, left lat ankle: PSORIASIFORM DERMATITIS (L44.8) (see microscopic description and comment) 12:33 PM [facility] DERMATOPATHOLOGY LABORATORY Amendment electronically signed by Yoselin Vega MD on 10/16/2024 at 12:33 PM Clinical History SK vs Other; Growing Irritated Non-healing. 12:33 PM [facility] DERMATOPATHOLOGY LABORATORY Gross Description Specimen A: Received is one formalin filled container labeled with the patient's name. The specimen consists of a shave biopsy (3 pieces) measuring [id number],12x4x1,17x6 x1 mm. Jar 0. 12:33 PM [facility] DERMATOPATHOLOGY LABORATORY Microscopic Description Specimen A. SKIN, [...] favored. Clinicopathologic correlation is recommended. 12:33 PM [facility] DERMATOPATHOLOGY LABORATORY Disclaimer An external and internal positive and negative controls are appropriate for the histochemical, immunohistochemical and immunofluorescence stain(s) in this case (if any), except where stated explicitly. The performance characteristics of the stain(s) cited in this report were developed and its performance characteristic determined by the Dermatopathology Laboratory at [facility], directed by Dr. Tino Young. These tests need not be, and therefore are not, approved by the [place] Food and Drug Administration. The tests are used for clinical purposes. Billing Codes Specimen Charges Stain Charges 04692 1 14110 33504 1 1 12:33 PM [facility] DERMATOPATHOLOGY LABORATORY Embedded Images 12:33 PM [facility] DERMATOPATHOLOGY LABORATORY Pathology/Cytolo gy TISSUE SPECIMEN FROM SKIN / Unknown 10/09/2024 11:05 AM RAT POISONER 10/09/2024 3:50 PM RAT POISONER Yaneli Stevenson LABORER FILTER PLANT-PRODUCT DEVELOPMENT LAB - PATH OLOGY/CYTOLOGY ORDERABLES DERMATOPATHOLOGY LABORATORY [facility] - Department of Dermatology [address], [address] [phone] documented in this encounter Visit Diagnoses Not on filedocumented in this encounter Care Teams Office Correspondent Relationship Specialty Start Date End Date Cirilo Brown DO [address] [facility] [address] [place], [place] [id number] PCP - General 04/08/21 documented as of this encounter
--- OUTSIDE RECORDS SUMMARY | 2024-11-12 16:00 | XMS_ITS | Encounter Summary ---
Author Organization [facility] Address [address] [facility] [place] [address] Care Team Providers Care Fruit Culler Name Role Phone Cirilo Brown DO Primary Care Provider Encounter Details Date Type Department Care Team (Late st Contact Info) Description 04/09/2021 Lab Requisition [facility] DermPath Lab [address] [facility] [place] [address] Mikki Snyder MD [address] [facility] [place] 3 [place] [address] Social History Tobacco Use Types Packs/Day Years Used Date Smoking Tobacco: Never Assessed Sex and Gender Information Value Date Recorded Sex Assigned at Not on file Gender Identity Not on file Sexual Orientation Not on file documented as of this encounter Plan of Treatment Not on file documented as of this encounter Procedures Procedure Name Priority Date/Time Associated Diagnosis Comments DERMATOPATHOLOGY Routine 04/08/2021 12:0 0 AM CDT documented in this encounter Results * DERMATOPATHOLOGY (04/08/2021 12:00 AM CDT) Case Report Dermatopathology Report Case: [id number] Authorizing Provider: Mikki Snyder MD Collected: 04/08/2021 12:00 AM Ordering Location: [facility] Lab Received: 04/09/2021 09:57 AM Pathologist: Karissa España MD Specimen: Skin, left post thigh 2:06 PM CDT DERMATOPATHOLOGY LABORATORY Final Diagnosis Specimen A. SKIN, left post thigh: COMPOUND MELANOCYTIC NEVUS, IRRITATED (D22.72) 2:06 PM CDT DERMATOPATHOLOGY LABORATORY Clinical History R/O nevus, R/O atypia, irregular color. 1 2:06 PM CDT DERMATOPATHOLOGY LABORATORY Gross Description Specimen A: Received is one formalin filled container labeled with the patient's name and designated left post thigh. The specimen consists of a shave measuring [id number]. Jar 0. 1 2:06 PM CDT DERMATOPATHOLOGY LABORATORY Microscopic Description Specimen A. SKIN, left post thigh: There is melanin pigment in the stratum corneum. There are nests of melanocytes at the dermal-epidermal junction and within the dermis. 1 2:06 PM CDT DERMATOPATHOLOGY LABORATORY Disclaimer An external and internal positive and negative controls are appropriate for the histochemical, immunohistochemical and immunofluorescence stain(s) in this case (if any), except where stated explicitly. The performance characteristics of the stain(s) cited in this report were developed and its performance characteristic determined by the Dermatopathology Laboratory at [facility], directed by Dr. Tino Young. These tests need not be, and therefore are not, approved by the [place] Food and Drug Administration. The tests are used for clinical purposes. Billing Codes Specimen Charges Stain Charges 38191 1 1 2:06 PM CDT DERMATOPATHOLOGY LABORATORY Embedded Images 1 2:06 PM CDT DERMATOPATHOLOGY LABORATORY Pathology/Cytolog y TISSUE SPECIMEN FROM SKIN / Unknown 04/08/2021 04/09/2021 9:57 AM CDT Mikki Snyder MD LAB - PATHOLOGY/CYT OLOGY ORDERABLES DERMATOPATHOLOGY LABORATORY [facility] - Department of Dermatology [facility] [address] [place] [address], [address] [phone] documented in this encounter Visit Diagnoses Not on filedocumented in this encounter Care Teams Fruit Culler Relationship Specialty Start Date End Date Cirilo Brown DO [address] [place] [address] PCP - General 04/08/21 documented as of this encounter
--- OUTSIDE RECORDS SUMMARY | 2024-11-12 16:00 | XMS_ITS | Clinical Summary ---
Author Organization [facility] Address [address] [place] [address] Care Team Providers Care Dedicated Owner Operator Name Role Phone Cirilo Brown MD Primary Care Provider [phone] Allergies Active Allergy Reactions Criticality Noted Date Comments Metformin Diarrhea Low 01/17/2022 Medications amitriptyline 25 MG tablet Take 1 tablet (25 mg total) by mouth nightly at bedtime. 12/27/2019 Active LANTUS SOLOSTAR 100 UNIT/ML injection (PEN) Inject 10 Units into the skin every morning. 08/12/2019 Active lisinopril 20 MG tablet Take 1 tablet (20 mg total) by mouth nightly at bedtime. 12/22/2019 Active JANUVIA 100 MG tablet Take 1 tablet (100 mg total) by mouth daily. 12/10/2019 Active traZODone 50 MG tablet Take 1 tablet (50 mg total) by mouth daily. Take one half tab qhs 05/23/2019 Active sertraline 25 MG tablet Take 1 tablet (25 mg total) by mouth daily. 07/01/2020 Active estradiol 0.5 MG tablet Take 1 tablet (0.5 mg total) by mouth daily. Active LORazepam 0.5 MG tablet Take 1 tablet (0.5 mg total) by mouth 2 (two) times daily as needed for Anxiety. Active acidophilus capsule Take 1 capsule by mouth daily. 30 capsule 07/12/2020 Active amLODIPine (NORVASC) 2.5 MG tablet Take 1 tablet (2.5 mg total) by mouth daily. 10/10/2022 Active glimepiride (AMARYL) 2 MG tablet Take 1 tablet (2 mg total) by mouth every morning before breakfast. 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 ([facility]) 03/19/2020 Acute posthemorrhagic anemia 03/19/2020 Dysfunction of left eustachian tube 03/19/2020 Hematochezia in 03/19/2020 Hemorrhagic diarrhea 03/19/2020 Left sided colitis ([facility]) 03/19/2020 Mass of pancreas ([facility]) 03/19/2020 Physical deconditioning 03/19/2020 Sensorineural hearing loss (SNHL) of both ears 0 03/19/2020 Uncontrolled stage 2 hypertension 03/19/2020 Immunizations Name Administration Dates Next Due Fluzone 6 Months+ Quad (0.5 mL Prefilled Syringe ) 07/12/2020 Family History Medical History Relation Comments Colon Cancer Brother Relation Status Comments Brother Social History Tobacco Use Types Packs/Day Years Used Date Smoking Tobacco: Never Smokeless Tobacco: Never Alcohol Use Standard Drinks/Week Comments Yes 0 (1 standard drink = 0.6 oz pur e alcohol) occassionally Comments No Sex and Gender Information Value Date Recorded Sex Assigned at Not on file Legal Sex Female 2:51 PM AVIATION ENGINEER Gender Identity Not on file Sexual Orientation Not on file Last Filed Vital Signs Vital Sign Reading Time Taken Comments Blood Pressure 158/44 02/23/2023 8:10 AM CDT Pulse 55 02/23/2023 8:10 AM CDT Temperature 36.6 C (97.9 F) 02/23/2023 6:38 AM CDT Respiratory Rate 17 02/23/2023 8:10 AM CDT Oxygen Saturation 99% 02/23/2023 8:10 AM CDT Inhaled Oxygen Concentration - - Weight 63.5 kg (140 lb) 02/20/2023 1:43 PM CDT Height 154.9 cm (5' 1 ) 02/20/2023 1:43 PM CDT Body Mass Index 26.45 02/20/2023 1:43 PM CDT Plan of Treatment Health Maintenance Due Date Last Done Comments Kidney Health Evaluation 1945 Lipid Panel 1945 Diabetes: Retinopathy Eye Exam 1963 Hepatitis C 1963 DTaP, Tdap and Td Vaccines (1 - Tdap) 1964 Zoster Vaccines (1 of 2) 1995 Annual Medicare Wellness Visit 2010 Dexa Scan (General) 2010 Pneumococcal Vaccine: 65+ Years (2 of 2 - PPSV23 or PCV20) 09/09/2018 2018 RSV Immunization or 60+ Years (1 - 1-dose 75+ series) 2020 Hemoglobin A1C 01/10/2021 07/12/2020, 10/11/2019 COVID-19 Vaccine ( season) 2024 Influenza Adult (#1) 2024 07/12/2020, 08/01/2019, 07/09/2019, Additional history exists Colorectal Cancer Screening Colonoscopy (10 Years) Discontinued 02/23/2023, 02/23/2023, 03/31/2020 Meningococcal B Vaccine Aged Out No l onger eligible based on patient's age to complete this topic Meningococcal Vaccine Aged Out No naresh aylin eligible based on patient's age to complete this topic RSV Immunizations Under 20 Months Aged Out No longer eligible based on patient's age to complete this topic Procedures Procedure Name Priority Date/Time Associated Diagnosis Comments COLONOSCOPY Routine 02/23/2023 6:19 AM CDT HEMOGLOBIN, GLYCOSYLATED Routine 07/12/2020 3:25 AM CDT from Last 3 Months or Most Recently Relevant to Health Maintenance Results * (ABNORMAL) HEMOGLOBIN, GLYCATED (07/12/2020 3:25 AM CDT) HGB A1C 7.0(H) <5.7 % 07/12/2020 4:06 AM CDT [facility] Comment: ADA GUIDELINES 2010 5.7 TO 6.4% INCREASED RISK OF DIABETES > OR = 6.5% CONSISTENT WITH DIABETES ESTIMATED AVG GLUCOSE 154 mg/dL 07/12/2020 4:06 AM CDT [facility] 07/12/2020 3:25 AM CDT Maranda Smith MD LABORATORY Final Result [facility] [address] [place] [address], [place] [phone] from Last 3 Months or Most Recently Relevant to Health Maintenance Insurance MEDICARE [facility] Care Teams Dedicated Owner Operator Relationship Specialty Start Date End Date Cirilo Brown MD [address] [place] [address] [place], [place] [phone] PCP - General INTERNAL MEDICINE 02/23/23
--- OUTSIDE RECORDS SUMMARY | 2024-11-12 16:00 | XMS_ITS | Encounter Summary ---
Author Organization [facility] Address [address] [place] [address] Care Team Providers Care Pneumatic Jack Operator Name Role Phone None, Provider Primary Care Provider Cirilo Lin MD Primary Care Provider [phone] Encounter Details Date Type Department Care Team (Late st Contact Info) Description 03/30/2020 Prep for Procedure [facility] [place] [address] Oni Amaya MD [address] [address] Social History Tobacco Use Types Packs/Day Years Used Date Smoking Tobacco: Never Smokeless Tobacco: Never Alcohol Use Standard Drinks/Week Comments Yes 0 (1 standard drink = 0.6 oz pur e alcohol) occassionally Comments Unknown Sex and Gender Information Value Date Recorded Sex Assigned at Not on file Legal Sex Female 2:51 PM FINISHING DEPARTMENT SUPERVISOR Gender Identity Not on file Sexual Orientation Not on file COVID-19 Exposure Response Date Recorded In the last month, have you been in contact with someone who was confirmed or suspected to have Coronavirus / COVID-19? No / Unsure 03/31/2020 7:16 AM CDT documented as of this encounter Plan of Treatment Not on file documented as of this encounter Results * RESPIRATORY PCR PANEL 2 (COLONSCOPY PATIENTS ONLY) (03/30/2020 9:40 AM CDT) [facility] ADENOVIRUS PCR (RESP) NOT DETECTED 03/30/2020 1:04 PM CDT [facility] CORONAVIRUS 229E PCR (RESP) NOT DETECTED 03/30/2020 1:04 PM CDT [facility] CORONAVIRUS HKU1 PCR (RESP) NOT DETECTED 03/30/2020 1:04 PM CDT [facility] CORONAVIRUS NL63 PCR (RESP) NOT DETECTED 03/30/2020 1:04 PM CDT [facility] CORONAVIRUS OC43 PCR (RESP) NOT DETECTED 03/30/2020 1:04 PM CDT [facility] METAPNEUMOVIRUS PCR (RESP) NOT DETECTED 03/30/2020 1:04 PM CDT [facility] RHINOVIRUS/ENTEROVI ALFONSO PCR (RESP) NOT DETECTED 03/30/2020 1:04 PM CDT [facility] INFLUENZA A PCR (RESP) NOT DETECTED 03/30/2020 1:04 PM CDT [facility] INFLUENZA B PCR (RESP) NOT DETECTED 03/30/2020 1:04 PM CDT [facility] PARAINFLUENZA 1 PCR (RESP) NOT DETECTED 03/30/2020 1:04 PM CDT [facility] PARAINFLUENZA 2 PCR (RESP) NOT DETECTED 03/30/2020 1:04 PM CDT [facility] PARAINFLUENZA 3 PCR (RESP) NOT DETECTED 03/30/2020 1:04 PM CDT [facility] PARAINFLUENZA 4 PCR (RESP) NOT DETECTED 03/30/2020 1:04 PM CDT [facility] RSV PCR (RESP) NOT DETECTED 03/30/20 1:04 PM CDT [facility] B PARAPERTUSIS PCR (RESP) NOT DETECTED 03/30/2020 1:04 PM CDT [facility] BORDETELLA PERTUSSIS PCR (RESP) NOT DETECTED 03/30/2020 1:04 PM CDT [facility] CHLAMYDOPHILA PNEUMONIAE PCR (RESP) NOT DETECTED 03/30/2020 1:04 PM CDT [facility] MYCOPLASMA PNEUMONIAE PCR (RESP) NOT DETECTED 03/30/2020 1:04 PM CDT [facility] CORONAVIRUS SARS COV 2 PCR (RESP) NOT DETECTED 03/30/2020 1:04 PM CDT [facility] Comment: THE SARS-CoV-2 TEST HAS BEEN AUTHORIZED BY THE FDA UNDER AN EUA FOR USE BY AUTHORIZED LABORATORIES. NASOPHARYNGEAL STRUCTURE / Unknown 03/30/2020 9:40 AM CDT Oni Amaya MD MICROBIOLOGY - GENERAL DESEAN VELAZQUEZ Final Result [facility] [address] [place] [address], documented in this encounter Visit Diagnoses Diagnosis Colitis- Primary Other and unspecified noninfectious gastroenteritis and colitis documented in this encounter Additional Health Concerns Infection Onset Date Last Indicated Resolved Time COVID-19 Rule Out 03/30/2020 03/30/2020 03/30/2020 1:04 PM CDT documented as of this encounter Care Teams Pneumatic Jack Operator Relationship Specialty Start Date End Date None, Provider, PCP - General 07/10/20 02/22/23 Cirilo Brown MD [address] [place] [address] [place] [address] PCP - General INTERNAL MEDICINE 02/23/23 documented as of this encounter
--- OUTSIDE RECORDS SUMMARY | 2024-11-12 16:00 | XMS_ITS | Continuity of Care Document ---
Author Organization [facility] Address [address] [place] [address] Phone Care Team Providers Care Joint Setter Name Role Phone Paz OD, Venancio Unavailable Unavailable Procedures Procedure Date Visual Field Examination(s) Eye Exam & Treatment Refraction Eye Exam & Treatment Refraction Advance Directives Directive Yes / No Effective Date File Name No Information Encounters Encounter Description Practice Location Reason(s) For Visit Diagnoses Date Provider Providers Copied on Encounter [facility], [address], [place], [place], [id number], tel:[phone] [facility] No Information 3-200 9 Paz OD Venancio. [address] , [address], [place], [address], [place]. tel:[phone] Referring Provider: Venancio Paz OD A, [address], [place], [place], [facility]. tel:[phone] [facility], [address], [place], [place], [id number], [place] tel:[phone] [facility] No Information 5-200 9 Paz OD Venancio. [address] , [address], [place], [address], [place]. tel:[phone] Referring Provider: Cirilo Brown MD, [address] [place] [address] [address], [place], [address]. tel:[phone] [facility], [address], [place], [place], [id number], [place] tel:[phone] [facility] No Information May-0 8-200 8 Paz OD Venancio. [address] , [address], [place], [address], [place]. tel:[phone] Family History Family Member Type Diagnosis Age At Onset No Information Payers Payer name Insurance type Covered constitution party ID Authoriza tiyann(s) [facility] [id number] Social History Type Description Quantity Date Captured Comments Sex Female Smoking Status No Information Chief Complaint And Reason For Visit No Information Reason For Referral Reason For Referral No Information History Of Present Illness Encounter Date Complaint History Of Prese nt Illness No Information Functional Status Date Functional Assessmen t No Information Instructions Date Instruction Additional Infor mation No Information Assessments Type Assessment Date No Information Patient Care Teams Name Effective Dates (start - stop) Status Members No Information
--- OUTSIDE RECORDS SUMMARY | 2024-11-12 16:00 | XMS_ITS | Referral Summary ---
Author Organization [facility] Address [address] [place] [address] Care Team Providers Care Fast Food Manager Name Role Phone Cirilo Brown DO Primary Care Provider [phone] Source Comments [facility],non-owned Affiliates and Associated Physician Practices is amultiple site organization consisting of ambulatory clinics and hospital sitesin [place], [place], [place] and [place]. This disclosure is being madepursuant to the Care Everywhere program and may not contain all information available regarding this patient. Last updated 18.[facility] Encounters Date Type Department Care Team Description 10/09/2024 Lab Requisition [facility] - DermPath Lab [address] [place] [address] Yaneli Stevenson APRN-CNP from Last 3 Months Social History Tobacco Use Types Packs/Day Years Used Date Smoking Tobacco: Never Assessed Sex and Gender Information Value Date Recorded Sex Assigned at Not on file Gender Identity Not on file Sexual Orientation Not on file Plan of Treatment Not on file Procedures Procedure Name Priority Date/Time Associated Diagnosis Comments DERMATOPATHOLOGY Routine 10/09/2024 11:0 5 AM COMMERCIAL HOUSEKEEPER from Last 3 Months Results * DERMATOPATHOLOGY (10/09/2024 11:05 AM COMMERCIAL HOUSEKEEPER) Case Report Dermatopathology Report Case: [id number] Authorizing Provider: Yaneli Stevenson, Collected: 10/09/2024 11:05 AM VELIASALES AND EVENTS COORDINATOR Ordering Location: [facility] Physician [facility] - Received: 10/09/2024 03:50 PM DermPath Lab Pathologist: Yoselin Vega MD Specimen: Skin, left lat ankle 12:33 PM COMMERCIAL HOUSEKEEPER DERMATOPATHOLOGY LABORATORY Amended Report Change in site to left lat ankle, per faxed request from office. 12:33 PM [facility] DERMATOPATH[facility]Y LABORATORY Final Diagnosis Specimen A. SKIN, left lat ankle: PSORIASIFORM DERMATITIS (L44.8) (see microscopic description and comment) 12:33 PM [facility] DERMATOPATHOLOGY LABORATORY Amendment electronically signed by Yoselin Vega MD on 10/16/2024 at 12:33 PM Clinical History SK vs Other; Growing Irritated Non-healing. 12:33 PM [facility] DERMATOPATHOLOGY LABORATORY Gross Description Specimen A: Received is one formalin filled container labeled with the patient's name. The specimen consists of a shave biopsy (3 pieces) measuring [id number],12x4x1,17x6 x1 mm. Jar 0. 12:33 PM [facility] DERMATOPATHOLOGY LABORATORY Microscopic Description Specimen A. SKIN, [...] favored. Clinicopathologic correlation is recommended. 12:33 PM [facility] DERMATOPATHOLOGY LABORATORY Disclaimer An external and internal positive and negative controls are appropriate for the histochemical, immunohistochemical and immunofluorescence stain(s) in this case (if any), except where stated explicitly. The performance characteristics of the stain(s) cited in this report were developed and its performance characteristic determined by the Dermatopathology Laboratory at [facility], directed by Dr. Tino Young. These tests need not be, and therefore are not, approved by the [place] Food and Drug Administration. The tests are used for clinical purposes. Billing Codes Specimen Charges Stain Charges 17919 1 83132 04858 1 1 12:33 PM COMMERCIAL HOUSEKEEPER DERMATOPATHOLOGY LABORATORY Embedded Images 12:33 PM COMMERCIAL HOUSEKEEPER DERMATOPATHOLOGY LABORATORY Pathology/Cytolo gy TISSUE SPECIMEN FROM SKIN / Unknown 10/09/2024 11:05 AM COMMERCIAL HOUSEKEEPER 10/09/2024 3:50 PM COMMERCIAL HOUSEKEEPER Yaneli Stevenson FAVOR MAKER-SALES AND EVENTS COORDINATOR LAB - PATH OLOGY/CYTOLOGY ORDERABLES DERMATOPATHOLOGY LABORATORY [facility] - Department of Dermatology [place] [id number] [facility], [address]rd [address] [phone] from Last 3 Months Care Teams Fast Food Manager Relationship Specialty Start Date End Date Cirilo Brown DO [address] [facility] [address] [place], [place] [id number] PCP - General 04/08/21
--- OUTSIDE RECORDS SUMMARY | 2024-11-12 16:00 | XMS_ITS | Clinical Summary ---
Author Organization [facility] Address [address] [place] [address] Care Team Providers Care Software Applications Engineer Name Role Phone Chadwick Morel MD Unavailable [phone] Edelmira Arango NP Unavailable [phone] Cirilo Borwn MD Primary Care Provider [phone] Allergies Active Allergy Reactions Criticality Noted Date [...] with long-term current use of insulin (HCC) USE DAILY DIRECTED 100 each 3 4 Active Farxiga 10 mg tabletIndicati ons:Type 2 diabetes mellitus with diabetic polyneuropathy , with long-term current use of insulin ([facility]) Take 1 tablet (10 mg total) by mouth daily 90 tablet 3 4 Active BD Ronit 2nd Gen Pen Needle 32 gauge x 5/32 needle USE TO INJECT INSULIN ONCE DAILY 4 Active atorvastatin (LIPITOR) 10 mg tabletIndicati ons:Hyperlipid emia associated with type 2 diabetes mellitus ([facility]) Take 1 tablet (10 mg total) by mouth daily 90 tablet 3 4 025 Active amLODIPine (NORVASC) 5 mg tabletIndicati ons:Hypertensi on associated with diabetes ([facility]) Take 1 tablet (5 mg total) by mouth daily 90 tablet 3 4 025 Active insulin glargine 100 unit/mL (3 mL) pen for injectionIndic ations:Type 2 diabetes mellitus with diabetic polyneuropathy , with long-term current use of insulin ([facility]) Inject 10 Units under the skin daily 15 mL 2 4 025 Active Accu-Chek Guide test strips stripIndicatio ns:Type 2 diabetes mellitus with diabetic polyneuropathy , with long-term current use of insulin ([facility]) Check blood sugar daily 100 strip 3 4 Active Januvia 100 mg tabletIndicati ons:Type 2 diabetes mellitus with diabetic polyneuropathy , with long-term current use of insulin ([facility]) TAKE 1 TABLET(100 MG) BY MOUTH DAILY 90 tablet 3 5 Active Januvia 100 mg tabletIndicati ons:Type 2 diabetes mellitus with diabetic polyneuropathy , with long-term current use of insulin ([facility]) TAKE 1 TABLET(100 MG) BY MOUTH DAILY [...] like to establish care with a general conveyor monitor -The patient's device was interrogated today and found to be functioning appropriately. No significant programming changes were made at this time. The patient will continue to be followed through the [facility] device clinic remotely and with in office device interrogations as needed. EKG upon my review today demonstrates sinus rhythm (50) with normal CT, QRS duration, and QT interval. -follow-up in [...] mychart. Aware to check results/results letter in [employer]. Will contact by phone if needed. UTD on DM eye exam (05/02/23 no DMR/DME). Saw last week at [facility]; letter sent to get report. Strive for [...] infection. Assessment & Plan (09/11/2023 10:48 AM CLINICAL LAB SCIENTIST): Chronic problem. A1c has greatly worsened from 7.0% 05/2023 to now 9.2% after med changes 05/2023. Will restart the basaglar 10 units every day. To send [employer] message with update if any questions/concerns. Current [...] months Assessment & Plan (11/07/2022 12:04 PM CLINICAL LAB SCIENTIST): Chronic, overall fairly controlled Advise to decrease [...] mychart. Aware to check results/results letter in [employer]. Will contact by phone if needed. Assessment & Plan (01/15/2024 10:07 AM CDT): Chronic problem. Controlled on current Lisinopril 40mg daily, amlodipine 5mg daily Assessment & Plan (09/11/2023 10:03 AM CLINICAL LAB SCIENTIST): Chronic problem. Controlled on current Lisinopril 40mg daily, amlodipine 5mg daily Assessment & Plan (05/22/2023 10:37 AM CDT): Chronic, uncontrolled Increase amlodipine to 5 mg Continue lisinopril 20 mg oral daily Advised home blood pressure monitoring Low-salt diet Follow-up in 3 months Assessment & Plan (11/07/2022 12:03 PM CLINICAL LAB SCIENTIST): Pt has white coat syndrome BP today [...] taking Atorvastatin 10mg. Last lipid panel: 05/22/23 QUW=837, TG=84. Will update labs. Verified that she uses mychart. Aware to check results/results letter in [employer]. Will contact by phone if needed. Assessment & Plan (01/15/2024 10:07 AM CDT): Chronic problem. Currently taking Atorvastatin 10mg. Last lipid panel: 05/22/23 NJS=216, TG=84. Assessment & Plan (09/11/2023 10:04 AM CLINICAL LAB SCIENTIST): Chronic problem. Currently taking Atorvastatin 10mg. Last lipid panel: 05/22/23 VQH=526, TG=84. Assessment & Plan (05/22/2023 10:38 AM CDT): Chronic, stable Continue statin therapy Recheck lipid panel today Assessment & Plan (11/07/2022 12:02 PM CLINICAL LAB SCIENTIST): Patient on statin therapy Tolerating well Assessment [...] mellitus with stage 1 chronic kidney disease (CMS/HCC) 03/19/2020 07/11/2024 Well child examination 03/19/202007/11 Encounters Date Type Department Care Team Description 09/02/2024 10:15 AM CLINICAL LAB SCIENTIST Ancillary Procedure [facility] [address] [address] Presence of cardiac pacemaker (Primary Dx); SSS (sick sinus syndrome) (CMS/[facility]) ([facility]) from Last 3 Months Immunizations Name Administration Dates Next Due Hep B, Adolescent or Pediatric 12/15/2011 Influenza, Quadrivalent, Spl it, Preservative Free, Intramuscular 07/12/2020,07/09/2019 Influenza, Trivalent, Adjuva nted, Intramuscular 2018 Influenza, Trivalent, High D ose, Split, Preservative Free, Intramuscular 07/05/2017,07/06/2016,07/07/2015,06/23 Influenza, Trivalent, IM (MDV) 07/16/2013 Influenza, Unspecified 08/01/2019 Moderna SARS-CoV-2 Monovalen t Vaccination (12+ YRS) 12/22/2020,11/12/2020 Pneumococcal Conjugate PCV 13 2018 Td, adsorbed 12/15/2011 Surgical History Surgery Date Site/Laterality Comments HYSTERECTOMY 10/02/1972 - 10/01/1973 Bilateral BLADDER SUSPENSION 10/02/2002 - 10/01/2003 CHOLECYSTECTOMY 10/02/2009 - 10/01/2010 CARDIAC PACEMAKER PLACEMENT 05/24/2022 [employer] COLONOSCOPY CATARACT EXTRACTION, BILATERAL 07/02/2023 - 08/01/2023 Bilateral Medical History Medical History Date Comments Hypertension associated with diabetes 1994 Type 2 diabetes mellitus wit h diabetic polyneuropathy, with long-term current use of insulin Atrial fibrillation Bradycardia Hyperlipidemia associated with type 2 diabetes m ellitus Hypertensive urgency Diabetes mellitus with stage 1 chronic kidney di sease Dysfunction of left eustachian tube Sensorineural hearing loss (SNHL) of both ears Left sided colitis Mass of pancreas Acute posthemorrhagic anemia Shortness of breath Cataract 2022 Family History Medical History Relation Name Comments Hypertension Brother 3 Luis Alberto Arrhythmia Brother 4 Chadwick Cardiomyopathy Brother 4 Chadwick Hypertension Brother 6 Arrhythmia Brother 7 Relation Name Status Comments Brother 1 Alive Brother 2 Alive Brother 3 Luis Alberto Alive Brother 4 Chadwick Alive Brother 5 Chadwick Alive Brother 6 Brother 7 Father Maternal Grandmother Mother Paternal Grandfather Paternal Grandmother Social History Tobacco Use Types Packs/Day Years [...] on file Legal Sex Female 2:33 AM CLINICAL LAB SCIENTIST Gender Identity Female 05/11/2022 8:58 AM CDT Sexual Orientation Not on file Obstetrics History Last Filed Vital Signs Vital Sign Reading Time Taken Comments Blood Pressure 122/62 07/11/2024 10:16 AM CDT Pulse 50 07/11/2024 10:16 AM CDT Temperature 36.6 C (97.8 F) 03/28/2022 4:35 PM CDT Respiratory Rate 14 07/11/2024 10:16 AM CDT Oxygen Saturation 98% 10/03/2023 10:28 AM CLINICAL LAB SCIENTIST Inhaled Oxygen Concentration - - Weight 56.7 kg (125 lb) 07/11/2024 10:16 AM CDT Height 152.4 cm (5') 07/11/2024 10:16 AM CDT Body Mass Index 24.41 07/11/2024 10:16 AM CDT Plan of Treatment Health Maintenance Due Date Last Done Comments Hepatitis C Screening 1945 Osteoporosis Screening-Bone Density Scan 1945 Zoster Vaccine (1 of 2) 1995 Well Visit 65+ 2010 DTaP/Tdap/Td Vaccine (1 - Tdap) 12/16/2011 2 Pneumococcal vaccine 65+ (2 of 2 - PPSV23 or PCV20) 09/09/2018 2018 Fall Risk Assessment 03/28/2023 03/28/2022 Depression Screening 05/09/2023 05/09/2022, 01/18/20 22 Covid-19 Vaccine (3 - 2023-2 5 season) 2024 12/22/2020, 11/12/2020 Influenza Vaccine (#1) 2024 0, 08/01/2019, 07/09/2019, Additional history exists Hemoglobin A1C 01/09/2025 07/11/2024, 12/31, 09/11/2023, Additional history exists Dilated Eye Exam 05/02/2025 05/02/2023 Foot Exam 07/11/2025 07/11/2024, 05/03, 11/07/2022, Additional history exists Albumin Creatinine Ratio, Urine 07/17/2025 4, 05/22/2023 Lipid Panel 07/17/2025 07/17/2024, 05/03, 03/26/2022, Additional history exists eGFR 07/17/2025 07/17/2024, 05/03, 03/28/2022, Additional history exists Breast Cancer Screening-Mammogram Discontinued 06/24/2022, 05/04/2021, 06/12/2019, Additional history exists Medical Devices Implanted Type Area Employee Development Manager Device Identifier Shelf Expiration Date Model / Serial / Lot [employer] Feng Lead 7841 Endocardial Pacing Mr Is-1 Bipolar Connection 7841 - [id number] - [id number] Implanted:Qty: 1 on 05/24/2022 by Chacho eRece MD at 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 Lead [employer] Feng [id number] 12/25/2022 7840 / [id number] / [employer] C.R.M. Essentio 4.45x5.02cm 2 Chamber Is1 Connector .75cm Pacemaker 13.7 L111 - [id number] - [id number] Implanted:Qty: 1 on 05/24/2022 by Chacho Reece MD at [facility] Pacemaker [employer] C.R.M. [id number] 03/26/2024 L111 / [id number] / Procedures Procedure Name Priority Date/Time Associated Diagnosis Comments DEVICE CHECK - REMOTE Routine 09/02/2024 11:55 AM CLINICAL LAB SCIENTIST SSS (sick sinus syndrome) (CMS/HCC) (HCC) EGFR [...] DEVICE CHECK - REMOTE (09/02/2024 11:55 AM CLINICAL LAB SCIENTIST) Anatomical Region Laterality Modality Other Narrative 09/07/2024 1:46 PM CLINICAL LAB SCIENTIST Table formatting from the original result was not included. PM CHECK (REMOTE) Patient ID: Bailey Sharma is a 79 y.o. female This patient received a [employer] Pacemaker. They had a routine remote [...] to ERICKA Episodes last 90 days/Comments: AF [place] 0 % No new ventricular event. NORMAL DEVICE FUNCTION PROGRAMMED MEDICATIONS: Anti-coagulant(s): None Anti-arrhythmic(s): Norvasc 5 mg daily PLAN: 1) normal [employer] Pacemaker evaluation 2) [employer] remote transmission scheduled in 3 months. [...] PM CDT 07/17/2024 4:14 PM CDT us Lula Abernathy NP LAB BLOOD ORDERABLES Adriana l Result [facility] [address] Department [place] [address] * (ABNORMAL) Albumin Creatinine Ratio, Urine (07/17/2024 3:40 PM CDT) Albumin Ur 16.9 mg/L Comment: Interpretive Data No reference range established. Current interpretive data was last revised 2019. Creatinine Ur 50.6 mg/dL [facility] Comment: Interpretive Data No reference range established. Current interpretive data was last revised 2019. Albumin Creatinine Ratio, Ur 33(H) 1 - 29 mg/g [facility] Urine 07/17/2024 3:40 PM CDT 07/17/2024 4:07 PM CDT us Lula Abernathy TRIP RIDER LAB URINE ORDERABLES Adriana mobley Result [facility] [address] [place] [address] * Lipid panel (07/17/2024 3:40 PM CDT) [...] on 2018. Triglycerides 80 <=149 mg/dL [facility] Comment: Interpretive Data Ages < or = [...] on 2018. HDL 62 >=40 mg/dL [facility] Comment: Interpretive Data Ages < or = [...] mg/dL High: >160 mg/dL Calculated using the Carlo LDL-C estimating equation. This equation was implemented [...] PM CDT us Lula Abernathy NP LAB BLOOD ORDERAB[place] [address] Department [place] [address] * (ABNORMAL) POCT hemoglobin A1c (07/11/2024 10:19 AM CDT) Hemoglobin A1C, POC 7.1 4.0 - 5.6 % Blood 07/11/2024 10:1 9 AM CDT Lula Abernathy NP POINT OF CARE TEST ORDERA BLES Final Result * DIABETES EYE EXAM (05/02/2023 8:12 AM CDT) Historical Provider HEALTH MAINTENANCE Edited Result - [...] compared to prior imaging studies performed at [facility] on 06/06/2018, 06/12/2019 and 05/04/2021. The breasts [...] compared to prior imaging studies performed at [facility] on 06/06/2018,06/12/2019 and 05/04/2021. The breasts are [...] Recently Relevant to Health Maintenance Insurance MEDICARE [facility] MEDICARE [facility] MEDICARE [facility] Advance Directives For more information, please contact: [phone] * Full Code (Latest Code Status on File) Date Activated Date Inactivated Comments 03/26/2022 5:53 AM 03/28/2022 9:56 PM Care Teams Software Applications Engineer Relationship Specialty Start Date End Date Cirilo Brown MD [address] [facility] [address] [place] [address] PCP - General Internal Medicine 09/06/23 Chadwick Morel MD [address] [address] 10/11/19 Edelmira Arango NP [address] [address] Nurse Practitioner Cardiology 03/28/22
--- OUTSIDE RECORDS SUMMARY | 2024-11-12 16:00 | XMS_ITS | Clinical Summary ---
Author Organization [facility] Address [address] [place] [address] Care Team Providers Care Grease Machine Worker Name Role Phone Cirilo Brown DO Primary Care Provider [phone] Source Comments [facility],non-owned Affiliates and Associated Physician Practices is amultiple site organization consisting of ambulatory clinics and hospital sitesin [place], [place], [place] and [place]. This disclosure is being madepursuant to the Care Everywhere program and may not contain all information available regarding this patient. Last updated 18.[facility] Encounters Date Type Department Care Team Description 10/09/2024 Lab Requisition [facility] - DermPath Lab [address] [place] [address] Yaneli Stevenson, SOCIAL MEDIA MARKETING SPECIALIST-HEAD CD REACTOR OPERATOR from Last 3 Months Social History Tobacco Use Types Packs/Day Years Used Date Smoking Tobacco: Never Assessed Sex and Gender Information Value Date Recorded Sex Assigned at Not on file Gender Identity Not on file Sexual Orientation Not on file Plan of Treatment Health Maintenance Due Date Last Done Comments BONE DENSITY TESTING 1945 MEDICARE AWV 12 MONTHS 1945 DTAP/TDAP/TD VACCINES (1 - Tdap) 1964 PNEUMOCOCCAL VACCINE 50+ (1 of 1 - PCV) 1995 ZOSTER VACCINE (1 of 2) 1995 Respiratory Syncytial Virus (RSV) Vaccine Pt: or over 60 yrs (1 - 1-dose 75+ series) 2020 COVID-19 VACCINE ( - 2023-2 5 season) 2024 INFLUENZA VACCINE (#1) 2024 DEPRESSION SCREENING 10/02/2024 HEPATITIS B VACCINE Aged Out No longe r eligible based on patient's age to complete this topic HIB VACCINE Aged Out No longer eligi ble based on patient's age to complete this topic HPV VACCINE Aged Out No longer eligi ble based on patient's age to complete this topic MENINGOCOCCAL (Group B) VACCINE Aged Out No longer eligible based on patient's age to complete this topic MENINGOCOCCAL VACCINE Aged Out No naresh aylin eligible based on patient's age to complete this topic Procedures Procedure Name Priority Date/Time Associated Diagnosis Comments DERMATOPATHOLOGY Routine 10/09/2024 11:0 5 AM CHIEF OPERATIONS OFFICER from Last 3 Months Results * DERMATOPATHOLOGY (10/09/2024 11:05 AM CHIEF OPERATIONS OFFICER) Case Report Dermatopathology Report Case: [id number] Authorizing Provider: Yaneli Stevenson, Collected: 10/09/2024 11:05 AM SOCIAL MEDIA MARKETING SPECIALIST-HEAD CD REACTOR OPERATOR Ordering Location: [facility] - Received: 10/09/2024 03:50 PM DermPath Lab Pathologist: Yoselin Vega MD Specimen: Skin, left lat ankle 12:33 PM [facility] Amended Report Change in site to left lat ankle, per faxed request from office. 12:33 PM [facility] Final Diagnosis Specimen A. SKIN, left lat ankle: PSORIASIFORM DERMATITIS (L44.8) (see microscopic description and comment) 12:33 PM [facility] Amendment electronically signed by Yoselin Vega MD on 10/16/2024 at 12:33 PM Clinical History SK vs Other; Growing Irritated Non-healing. 12:33 PM [facility] Gross Description Specimen A: Received is one formalin filled container labeled with the patient's name. The specimen consists of a shave biopsy (3 pieces) measuring [id number],12x4x1,17x6 x1 mm. Jar 0. 12:33 PM [facility] Microscopic Description Specimen [...] favored. Clinicopathologic correlation is recommended. 12:33 PM [facility] Disclaimer An external and internal positive and negative controls are appropriate for the histochemical, immunohistochemical and immunofluorescence stain(s) in this case (if any), except where stated explicitly. The performance characteristics of the stain(s) cited in this report were developed and its performance characteristic determined by the Dermatopathology Laboratory at [facility], directed by Dr. Tino Young. These tests need not be, and therefore are not, approved by the [place] Food and Drug Administration. The tests are used for clinical purposes. Billing Codes Specimen Charges Stain Charges 97222 1 02340 27637 1 1 5 12:33 PM CHIEF OPERATIONS OFFICER DERMATOPATHOLOGY LABORATORY Embedded Images 12:33 PM [facility] Pathology/Cytolo gy TISSUE SPECIMEN FROM SKIN / Unknown 10/09/2024 11:05 AM CHIEF OPERATIONS OFFICER 10/09/2024 3:50 PM CHIEF OPERATIONS OFFICER Yaneli Stevenson SOCIAL MEDIA MARKETING SPECIALIST-HEAD CD REACTOR OPERATOR LAB - PATH OLOGY/CYTOLOGY ORDERABLES DERMATOPATHOLOGY LABORATORY [facility] - Department of Dermatology [facility] Medicine [address] [place] [address], [address] [phone] from Last 3 Months Care Teams Grease Machine Worker Relationship Specialty Start Date End Date Cirilo Brown DO [address] [place], [place] [id number] PCP - General 04/08/21
== END 2024-11-12 15:18 | disposition home or self-care (01) ==
PROVIDERS: PCP Internal Medicine; Visit Provider Internal Medicine
DX: M54.9 Dorsalgia, unspecified (principal)
CPT/HCPCS: 71046

== ENCOUNTER 2025-03-14 10:36 | Outpatient (CLI) | payer MEDICARE, BC, SELFPAY ==
--- OUTSIDE RECORDS SUMMARY | 2025-03-14 10:38 | XMS_ITS | Clinical Summary ---
Author Organization [facility] Address [address] [place] [address] Care Team Providers Care Tamale Maker Name Role Phone Cirilo Brown DO Primary Care Provider [phone] Source Comments [facility],non-owned Affiliates and Associated Physician Practices is amultiple site organization consisting of ambulatory clinics and hospital sitesin [place], [place], [place] and [place]. This disclosure is being madepursuant to the Care Everywhere program and may not contain all information available regarding this patient. Last updated 18.[facility] [employer] Social History Tobacco Use Types Packs/Day Years Used Date Smoking Tobacco: Never Assessed Comments Unknown Sex and Gender Information Value Date Recorded Sex Assigned at Not on file Legal Sex Female 9:30 AM CDT Gender Identity Not on file Sexual Orientation [...] VACCINE ( - 2023-2 5 season) 2024 DEPRESSION SCREENING 10/02/2024 INFLUENZA VACCINE (Season Ended) 2025 HEPATITIS B VACCINE Aged Out No longe r eligible based on patient's age to complete this topic HIB VACCINE Aged Out No longer eligi ble based on patient's age to complete this topic HPV VACCINE Aged Out No longer eligi ble based on patient's age to complete this topic MENINGOCOCCAL (Group B) VACC INE SHARED DECISION-MAKING Aged Out No longer eligibl e based on patient's age to complete this topic MENINGOCOCCAL GROUPS A/C/Y/W VACCINE Aged Out No longer eligible b ased on patient's age to complete this topic Insurance MEDICARE [facility] MEDICARE [facility] Care Teams Tamale Maker Relationship Specialty Start Date End Date Cirilo Brown DO [address] [place] [address] PCP - General 04/08/21
--- OUTSIDE RECORDS SUMMARY | 2025-03-14 10:38 | XMS_ITS | Clinical Summary ---
Author Organization [facility] Address [address] [place] [address] Care Team Providers Care Black And White Printer Operator Name Role Phone Chadwick Morel MD Unavailable [phone] Edelmira Arango NP Unavailable [phone] Satinder Joya DO Primary Care Provider [phone] Allergies Active Allergy Reactions Criticality Noted Date Comments Metformin Diarrhea Low 01/17/2022 Medications sertraline (ZOLOFT) 25 mg tablet Take 1 tablet (25 mg total) by mouth daily 07/01/20 20 Active traZODone (DESYREL) 50 mg tablet Take 0.5 tablets (25 mg total) by mouth nightly as needed for sleep Active BD Rnoit 2nd Gen Pen Needle 32 gauge x /32 needle USE TO INJECT INSULIN ONCE DAILY 10/31/19 24 Active atorvastatin (LIPITOR) 10 mg tabletIndicat ions:Hyperlip idemia associated with type 2 diabetes mellitus (HCC) Take 1 tablet (10 mg total) by mouth daily 90 tablet 3 07/11/20 24 025 Active amLODIPine (NORVASC) 5 mg tabletIndicat ions:Hyperten pierce associated with diabetes (HCC) Take 1 tablet (5 mg total) by mouth daily 90 tablet 3 07/11/20 24 025 Active insulin glargine 100 unit/mL (3 mL) pen for injectionIndi cations: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, with long-term current use of insulin ([facility]) Inject 10 Units under the skin daily 15 mL 2 07/11/20 24 025 Active Additional Information Patient taking differently: 8-10 Unitssubcutaneous Daily, Reported on 02/25/2025 Accu-Chek Guide test strips stripIndicati ons: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, with long-term current use of insulin ([facility]) Check blood sugar daily 100 strip 3 07/11/20 24 Active Januvia 100 mg tabletIndicat ions: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, with long-term current use of insulin ([facility]) TAKE 1 TABLET(100 MG) BY MOUTH DAILY 90 tablet 3 10/21/19 25 Active pen needle, diabetic (BD Ronit 2nd Gen Pen Needle) 32 gauge x 32 needleIndicat ions: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, with long-term current use of insulin ([facility]) USE TO INJECT INSULIN ONCE DAILY 100 each 11 11/13/19 25 Active losartan (COZAAR) 50 mg tablet Take 1 tablet (50 mg total) by mouth daily 30 tablet 11 12/05/19 25 026 Active aspirin 81 mg enteric coated tablet Take 1 tablet (81 mg total) by mouth daily 30 tablet 11 01/03/20 25 026 Active ciprofloxacin (CIPRO) 250 mg tablet 01/13/20 25 Active mupirocin (BACTROBAN) 2 % ointment APPLY TWICE DAILY TO PATCH ON ANKLE 10/13/19 25 Active phenazopyridi ne (PYRIDIUM) 200 mg tablet TAKE 1 TABLET BY MOUTH THREE TIMES DAILY FOR PAIN. TAKE AFTER MEALS. 11/07/19 25 Active Farxiga 10 mg tabletIndicat ions:type 2 diabetes mellitus Take 1 tablet (10 mg total) by mouth daily 90 tablet 3 01/14/20 25 Active clopidogreL (PLAVIX) 75 mg tablet Take 6 tablets (450 mg total) by mouth daily for 1 day, THEN 1 tablet (75 mg total) daily. on February 01 pt was advised to d/c Maryam; she will start clopidogrel 75 mg once daily. On the first day of starting Clopidogrel pt will take take 6 tabs. Second day and every day after, pt will take 1 tab po daily.. 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 No significant programming changes were made at this time. The patient will continue to be followed through the [facility] device clinic remotely and with in office device interrogations as needed. EKG upon my review today demonstrates sinus rhythm (50) with normal PA, QRS duration, and QT interval. -follow-up in 1 year for a 12 lead EKG, device interrogation, and clinic visit Atrial fibrillation 07/17/2023 Assessment & Plan (07/17/2023 8:28 AM CDT): -atrial arrhythmia burden remains low on device interrogation today, it was less than 1% Bradycardia 03/26/2022 Assessment & Plan (07/17/2023 8:28 AM CDT): -status post dual-chamber pacemaker placement with Dr. Reece in 2021 Type 2 diabetes mellitus wit h diabetic polyneuropathy, with long-term current use of insulin 01/17/2022 Assessment & Plan (01/13/2025 9:21 AM CDT): Chronic problem. A1c has improved from 7.1% 07/11/24 to now 7.0%. no changes at this time. Brought in BG meter & reviewed during appt. Current medications: Januvia 100mg daily Farxiga 10mg daily Basaglar 8-10 units daily UTD on labs. DM eye exam (05/02/23 no DMR/DME). Saw 07/2024 at [facility]; letter sent to get report. Strive for [...] skin breakdown and infection. Assessment & Plan (07/11/2024 10:48 AM CDT): Chronic problem. A1c has improved from 7.3% 01/15/24 to now 7.1%. no changes at this time. Brought in BG meter & reviewed during appt. Current medications: Januvia 100mg daily Farxiga 10mg daily Basaglar 8-10 units daily Will update labs. Verified that she uses mychart. Aware to check results/results letter in DBVu. Will contact by phone if needed. UTD on DM eye exam (8/1/23 no DMR/DME). Saw last week at [facility]; letter sent to get report. Strive for [...] infection. Assessment & Plan (09/11/2023 10:48 AM WATCHMAKER APPRENTICE): Chronic problem. A1c has greatly worsened from 7.0% 05/2023 to now 9.2% after med changes 05/2023. Will restart the basaglar 10 units every day. To send DBVu message with update if any questions/concerns. Current [...] months Assessment & Plan (11/07/2022 12:04 PM WATCHMAKER APPRENTICE): Chronic, overall fairly controlled Advise to decrease [...] associated with diabetes 01/17/2022 Assessment & Plan (01/13/2025 9:06 AM CDT): Chronic problem. Controlled on current Losartan 50 mg daily, amlodipine 5mg daily Assessment & Plan (07/11/2024 10:40 AM CDT): Chronic problem. Controlled on current Lisinopril 40mg daily, amlodipine 5mg daily Will update labs. Verified that she uses mychart. Aware to check results/results letter in DBVu. Will contact by phone if needed. Assessment & Plan (01/15/2024 10:07 AM CDT): Chronic problem. Controlled on current Lisinopril 40mg daily, amlodipine 5mg daily Assessment & Plan (09/11/2023 10:03 AM WATCHMAKER APPRENTICE): Chronic problem. Controlled on current Lisinopril 40mg daily, amlodipine 5mg daily Assessment & Plan (05/22/2023 10:37 AM CDT): Chronic, uncontrolled Increase amlodipine to 5 mg Continue lisinopril 20 mg oral daily Advised home blood pressure monitoring Low-salt diet Follow-up in 3 months Assessment & Plan (11/07/2022 12:03 PM WATCHMAKER APPRENTICE): Pt has white coat syndrome BP today [...] diabetes [place] 01/17/2022 Assessment & Plan (01/13/2025 9:05 AM CDT): Chronic problem. Currently taking Atorvastatin 10mg. Last lipid panel: 07/17/24 LDL=60, TG=80. Assessment & Plan (07/11/2024 10:40 AM CDT): Chronic problem. Currently taking Atorvastatin 10mg. Last lipid panel: 05/22/23 CZW=680, TG=84. Will update labs. Verified that she uses [facility]. Aware to check results/results letter in mychart. Will contact by phone if needed. Assessment & Plan (01/15/2024 10:07 AM CDT): Chronic problem. Currently taking Atorvastatin 10mg. Last lipid panel: 05/22/23 WTP=209, TG=84. Assessment & Plan (09/11/2023 10:04 AM WATCHMAKER APPRENTICE): Chronic problem. Currently taking Atorvastatin 10mg. Last lipid panel: 05/22/23 KRS=106, TG=84. Assessment & Plan (05/22/2023 10:38 AM CDT): Chronic, stable Continue statin therapy Recheck lipid panel today Assessment & Plan (11/07/2022 12:02 PM WATCHMAKER APPRENTICE): Patient on statin therapy Tolerating well Assessment [...] mellitus with stage 1 chronic kidney disease 03/19/2020 07/11/2024 Well child examination 03/19/202007/11 Encounters Date Type Department Care Team Description 03/03/2025 10:30 AM CDT Ancillary Procedure [facility] [address], [place] [address] Presence of cardiac pacemaker (Primary Dx); SSS (sick sinus syndrome) (HCC) 02/25/2025 9:00 AM CDT Office Visit [facility] [address] [place] [address] Susan Jacobo PA 02/17/2025 Telephone [facility]ology [address] [place] [phone] Lula Abernathy NP Med Refill 01/17/2025 Orders Only [facility] [address] [place] [phone] ProviderJavier MD 01/17/2025 Telephone [facility] Cardiology [address] [place] [address] [address] [place] [address] Rahul Vega MD 01/13/2025 9:00 AM CDT Office Visit [facility] Endocr[facility]ology [address] [place] [phone] Lula Abernathy NP Type 2 diabetes mellitus with diabetic polyneuropathy, with long-term current use of insulin (HCC) (Primary Dx); Hypertension associated with diabetes (HCC); Hyperlipidemia associated with type 2 diabetes mellitus (HCC) 01/03/2025 Telephone [facility] Cardiology [facility] [place] [address] Rahul Vega MD Scheduling Appointments 01/03/2025 Telephone [facility] [address] [facility] [address] [place] [address] Aditya Doyle EP-C CRN Follow Up 01/02/2025 12:19 PM CDT - 01/02/2025 1:54 PM CDT Surgery [facility] [address] [place] [phone] Rahul Vega MD LEFT HEART CATHETERIZATION WITH CORONARY ANGIOGRAPHY AND WITH OR WITHOUT LEFT VENTRICULOGRAM [id number] 01/02/2025 10:44 AM CDT - 01/02/2025 4:33 PM CDT Hospital Encounter [facility] [address] [place] [phone] Rahul Vega MD Chest pain, unspecified type Discharge Disposition: Discharge to home or self care 12/23/2024 Telephone [facility] Cardiology [address] [place] [address] Rahul Vega MD Cath Scheduling 12/23/2024 Results Follow-Up [facility] [address] [place] [address] Rahul Vega MD NM MPI SPECT (Rest and/or Stress) Multiple Studies, Transthoracic Echo (TTE) Complete W Doppler/CF 12/13/2024 8:30 AM CDT Ancillary Procedure [facility] Cardiology [address] [place] [address] Chest pain, unspecified type 12/13/2024 7:30 AM CDT Ancillary Procedure [facility] Cardiology [address] [place] [address] Hypertension associated with diabetes (HCC) from Last 3 Months Immunizations Immunization Administration Dates Next Due Hep B, Adolescent [...] 10/02/2009 - 10/01/2010 CARDIAC PACEMAKER PLACEMENT 05/24/2022 [employer] COLONOSCOPY CATARACT EXTRACTION, BILATERAL 07/02/2023 - 08/01/2023 Bilateral CARDIAC CATHETERIZATION 01/02/2025 N/A Procedure: LEFT HEART CATHETERIZATION WITH CORONARY ANGIOGRAPHY AND WITH OR WITHOUT LEFT VENTRICULOGRAM [id number]; Surgeon: Rahul Vega MD; Location: [facility] C[facility]IAC [facility]ACLE EBS ARCHITECT; Service: Cardiovascular; Laterality: N/A; Medical devices from this surgery are in the Medical Devices section. Medical History Medical History Date Comments Hypertension [...] History Relation Name Comments Hypertension Brother 3 Rahul Arrhythmia Brother 4 Chadwick Cardiomyopathy Brother 4 Chadwick Hypertension Brother 6 Arrhythmia Brother 7 Relation Name Status Comments Brother 1 Alive Brother 2 Alive Brother 3 Rahul Alive Brother 4 Chadwick Alive Brother 5 [...] staff should administer the PHQ-9) 0 05/09/2022 Personal Safety Answer Date Recorded Have you ever been in or are you currently in a harmful physical or emotional relationship or is someone making you feel afraid or unsafe? Denies 01/02/2025 Comments Unknown Sex and Gender Information Value Date Recorded Sex Assigned at Not on file Legal Sex Female 2:33 AM WATCHMAKER APPRENTICE Gender Identity Female 05/11/2022 8:58 AM CDT Sexual Orientation Not on file Obstetrics History Last Filed Vital Signs Vital Sign [place] Time Taken Comments Blood Pressure 130/60 02/25/2025 8:45 AM CDT Pulse 56 02/25/2025 8:45 AM CDT Temperature 36.6 C (97.8 F) 03/28/2022 4:35 PM CDT Respiratory Rate 16 01/13/2025 8:49 AM CDT Oxygen Saturation 99% 02/25/2025 8:45 AM CDT Inhaled Oxygen Concentration - - Weight 58.5 kg (128 lb 14.4 oz) 02/25/2025 8:45 AM CDT Height 152.4 cm (5') 02/25/2025 8:45 AM CDT Body Mass Index 25.17 02/25/2025 8:45 AM CDT Plan of Treatment Health Maintenance Due Date Last Done Comments Hepatitis C Screening 1945 Osteoporosis Screening-Bone Density Scan 1945 Zoster Vaccine (1 of 2) 1995 Well Visit 65+ 2010 DTaP/Tdap/Td Vaccine (1 - Tdap) 12/16/2011 2 Pneumococcal vaccine 65+ (2 of 2 - PPSV23) 09/09/2018 2018 Fall Risk Assessment 03/28/2023 03/28/2022 Depression Screening 05/09/2023 05/09/2022, 01/18/20 22 Covid-19 Vaccine (3 - 2023-2 5 season) 2024 12/22/2020, 11/12/2020 Influenza Vaccine (Season Ended) 2025 07/12/2020, 08/01/2019, 07/09/2019, Additional history exists Hemoglobin A1C 2025 01/13/2025, 07/02, 01/15/2024, Additional history exists Albumin Creatinine Ratio, Urine 07/17/2025 , 05/22/2023 Lipid Panel 07/17/2025 07/17/2024, 05/03, 03/26/2022, Additional history exists eGFR 07/17/2025 07/17/2024, 05/03, 03/28/2022, Additional history exists Foot Exam 01/13/2026 01/13/2025, 07/02, 05/22/2023, Additional history exists Dilated Eye Exam 07/08/2026 07/08/2024, 05/02/2023 Hepatitis B Screening Completed 12/15/2011 Breast Cancer Screening-Mammogram Discontinued 06/24/2022, 05/04/2021, 06/12/2019, Additional history exists Medical Devices Implanted Type Area Grain Manager Device Identifier Shelf Expiration Date Model / Serial / Lot [employer] Feng Lead 7841 Endocardial Pacing Mr Is-1 Bipolar Connection 7841 - [id number] - [id number] Implanted:Qty: 1 on 05/24/2022 by Chacho Reece MD at [facility] Lead [employer] Feng [id number] 05/10/2024 7841 / [id number] / [employer] Feng Lead 7840 Endocardial Pacing Mr Is-1 Bipolar Connection 7840 - [id number] - [id number] Implanted:Qty: 1 on 05/24/2022 by Chacho Reece MD at [facility] Lead [employer] Feng [id number] 12/25/2022 7840 / [id number] / [employer] C.R.M. Essentio 4.45x5.02cm 2 Chamber Is1 Connector .75cm Pacemaker 13.7 L111 - [id number] - [id number] Implanted:Qty: 1 on 05/24/2022 by Chacho Reece MD at [facility] Pacemaker [employer] C.R.M. [id number] 03/26/2024 L111 / [id number] / [employer] Feng Synergy Xd Monorail 3mm 20mm 144cm Delivery System 1 Access Port [id number] - S0 - [id number] Implanted:Qty: 1 on 01/02/2025 by Rahul Vega MD at [facility] Stent [employer] Feng 06/24/2026 [id number] / 0 / [id number] [employer] Feng Synergy Xd Monorail 3mm 32mm 144cm Delivery System 1 Access Port [id number] - S0 - [id number] Implanted:Qty: 1 on 01/02/2025 by Rahul Vega MD at [facility] Stent [employer] Feng 01/08/2026 [id number] / 0 / [id number] Procedures Procedure Name Priority Date/Time Associated Diagnosis Comments DEVICE CHECK - REMOTE Routine 03/03/2025 11:12 AM CDT SSS (sick sinus syndrome) (HCC) POCT GLUCOSE Routine 01/13/2025 8:53 AM CDT Type 2 diabetes mellitus with diabetic polyneuropathy, with long-term current use of insulin (HCC) POCT HEMOGLOBIN A1C Routine 01/13/2025 8 :53 AM CDT Type 2 diabetes mellitus with diabetic polyneuropathy, with long-term current use of insulin (HCC) ECG 12-LEAD Routine 01/02/2025 1:45 PM CDT LEFT HEART CATHETERIZATION WITH CORONARY ANGIOGRAPHY AND WITH AND WITHOUT LEFT VENTRICULOGRAM Routine 01/02/2025 1:21 PM CDT Chest pain, unspecified type POCT ACTIVATED CLOTTING TIME, LOW RANGE Routine 01/02/2025 12:57 PM CDT ECG 12-LEAD STAT 01/02/2025 11:06 AM CDT Chest pain, unspecified type NM MPI SPECT (REST AND/OR STRESS) MULTIPLE STUDIES Schedule Routine, Read Routine (OP Routine) 12/13/2024 11:58 AM CDT Chest pain, unspecified type TRANSTHORACIC ECHO (TTE) COMPLETE W DOPPLER/CF Routine 12/13/2024 8:18 AM CDT Hypertension associated with diabetes (HCC) EGFR Routine 07/17/2024 3:40 PM CDT [...] with long-term current use of insulin (HCC) DIABETES EYE EXAM Routine 07/08/2024 8:44 AM CDT SCREENING MAMMOGRAM BILATERAL W RAJINDER Schedule Routine, Read Routine (OP Routine) 06/24/2022 10:24 AM CDT Screening mammogram, encounter for from Last 3 Months or Most Recently Relevant to Health Maintenance Results * DEVICE CHECK - REMOTE (03/03/2025 11:12 AM CDT) Anatomical Region Laterality Modality Other Narrative 03/04/2025 10:41 AM CDT Table formatting from the original result was not included. PM CHECK (REMOTE) Patient ID: Bailey Sharma is a 79 y.o. female This patient received a [employer] Pacemaker. They had a routine remote transmission on 03/03/2025. Device implant indications: SSS Interrogation of the patient's device demonstrates the following: Presenting EGM: A paced V sensed @ 50 bpm Original Device Settings Right Atrium Right Ventricle Sensitivity (mV) 0.5 mV 2.5 mV Pacing Outputs 2.5 V @ 0.4 ms 1.4 V @ 0.4 ms Testing Measurements Right Atrium Right Ventricle Sensitivity (mV) 3.5 mV 13.2 mV Impedence (Ohms) 723 ohms 798 ohms Pace Threshold Not done 0.9 V @ 0.4 ms Pacing % 61 % 1 % Battery Status: 7 years to ERICKA Episodes last 90 days/Comments: AF Bentley 0 % No ventricular high rate NORMAL DEVICE FUNCTION PROGRAMMED MEDICATIONS: Anti-coagulant(s): , aspirin 81 mg daily Plavix 75 mg daily Anti-arrhythmic(s): Norvasc 5 mg daily PLAN: 1) [employer] Pacemaker evaluation 2) [employer] remote transmission scheduled in 3 months. 3) Programming appropriate for device measurements Jasmyn He RN us Andrea Mccarthy MD [facility] CARDIAC SERVICES PRO CEDURES Final Result * (ABNORMAL) POCT hemoglobin A1c (01/13/2025 8:53 AM CDT) Hemoglobin A1C, POC 7.0 4.0 - 5.6 % Blood 01/13/2025 8:53 AM CDT us Lulatresa Abernathy ACETYLENE TORCH OPERATOR POINT OF CARE TEST ORDERA BLES Final Result * POCT glucose (01/13/2025 8:53 AM CDT) Glucose Blood, POC 112 mg/dL Blood 01/13/2025 8:53 AM CDT Lulatresa Abernathy ACETYLENE TORCH OPERATOR POINT OF CARE TEST ORDERA BLES Final Result * ECG 12 lead (01/02/2025 1:45 PM CDT) 01/02/2025 1:45 PM CDT Narrative [facility] - 01/02/2025 8:21 PM CDT Vent Rate: 50 bpm RR Interval: 1199 msec PA Interval: 229 msec QRS Duration: 91 msec QT Interval: 462 msec QTC Interval: 434 msec P-R-T [place]: 266 - -11 - 245 degrees IMPRESSION: ELECTRONIC ATRIAL PACEMAKER LOW QRS VOLTAGE [QRS DEFLECTION < 0.5/1.0 mV IN LIMB/CHEST LEADS] ANTEROSEPTAL MYOCARDIAL INFARCTION , OF INDETERMINATE AGE [40+ ms Q WAVE IN V1- V4] MODERATE T-WAVE ABNORMALITY, CONSIDER LATERAL ISCHEMIA [-0.1+ mV T WAVE IN I/aVL/V5/V6] ABNORMAL ECG Electronically Signed By: Alcides Cortez MD PhD us Rahul Vega MD ECG ORDERABLES Final Re sult [facility] * LEFT HEART CATHETERIZATION WITH CORONARY ANGIOGRAPHY AND WITH AND WITHOUT LEFT VENTRICULOGRAM (01/02/2025 1:21 PM CDT) Anatomical Region Laterality Modality X-Ray Angiograph y Narrative 01/02/2025 1:47 PM CDT Images from the original result were not included. [facility] [place] [facility] [facility] [facility], [id number], [address] Left Heart Catheterization Procedure Report Attending Physician: Rahul Vega MD, [facility] Pre-Diagnosis: Abnormal stress test Post-Diagnosis: CAD Ms. Sharma is a 79 year old female who presented as an outpatient with chest discomfort. Stress testing was abnormal, and she was referred for cardiac catheterization. Procedures Performed: Selective coronary angiography Left heart catheterization Intravascular ultrasound of the left circumflex / OM1 coronary artery PTCA and drug eluting stent placement to the 1st obtuse marginal branch of the circumflex Intravascular ultrasound of the left anterior descending artery PTCA and drug eluting stent placement to the ostial left anterior descending artery Access:6F Right Radial Artery Catheter:JL 3.5 and JR 4 Injection:Left Main Trunk and Right Coronary Artery Closure:TR band Anticoagulation: 4000 Units Heparin Contrast: 102 ml Optiray Sedation: The patient was administered moderate sedation utilizing IV versed and fentanyl. The performing physician was present and supervising the administration of the medication throughout the sedation process. EBL: <10 mL Specimen removed: None Procedural details: After risks, benefits, and alternatives to the procedure were explained to the patient, they agreed to proceed. After signing informed consent the patient was brought to the cardiac catheterization laboratory. There were prepped and draped in sterile fashion. A 6 Moldovan sheath was inserted in the Right Radial Artery using the modified Seldinger technique. We then performed selective coronary angiography using various catheters. We then crossed the aortic valve and measured pressures. At completion of the case a TR Band was placed at the wrist with good hemostasis achieved. The patient tolerated the procedure well with no complaints and was transferred to the floor for further monitoring and care. Coronary Findings: LMT: Patent LAD: 95% hazy, complex stenosis in the ostial and proximal vessel. LCX: Large caliber, dominant vessel with 90% stenosis in the proximal segment of large OM1. RCA: Small, nondominant vessel with severe proximal stenosis of 90% Hemodynamic Findings: LV: 135/22 mm Hg Ao: 126/44 mean 73 mm Hg Interventional details: 6F XB 3.0 guiding catheter was engaged in the left main coronary artery 0.014 x 190 Pierce Blue wire was advanced into the distal OM1 without difficulty PTCA was performed with 3.0 x 20 mm compliant balloon at nominal pressure for 30 seconds Intravascular ultrasound was performed demonstrating severe calcific stenosis in the proximal 1st OM 3.0 x 20 mm Synergy drug eluting stent was advanced into the proximal OM1 and deployed at nominal pressure for 30 seconds Post-dilation was performed with 3.0 x 20 mm NC balloon at nominal pressure for 30 seconds Final angiography of the LCx was performed demonstrating PINEDA III flow and 0% residual stenosis Attention was then given to the left anterior descending artery, where the 0.014 x 190 Pierce Blue wire was advanced to the distal vessel without difficulty PTCA was performed with 3.0 x 20 mm NC balloon at nominal pressure for 30 seconds in serial inflations Intravascular ultrasound was performed demonstrating severe heterogeneous and calcific stenosis in the proximal and ostial LAD 3.0 x 32 mm Synergy drug eluting stent was advanced into the ostial and proximal LAD and deployed at nominal pressure for 30 seconds The stent was post-dilated with 3.5 x 20 mm NC balloon at nominal pressure for 30 seconds Final angiography was performed demonstrating PINEDA III flow and 0% residual stenosis Conclusions: Successful IVUS-guided PTCA and drug eluting stent placement to the 1st obtuse marginal branch of the circumflex Successful IVUS-guided PTCA and drug eluting stent placement to the ostial and proximal left anterior descending artery Recommendations: - Optimal medical therapy for CAD per current ACC/AHA guidelines - TR band x2 hours Rahul Vega MD 01/02/2025 1:[address] [facility] PCI RISK CALCULATOR PCI INDICATIONS New Onset Angina <= 2 months PCI STATUS [x] Elective [] Urgent [] Emergency [] Salvage CARDIOVASCULAR INSTABILITY [] Persistent Ischemic Symptoms (Chest Pain, STEMI) [] Hemodynamic Instability [] Ventricular Arrhythmias [] Acute Heart Failure [] Cardiogenic Shock [] Salvage or Refractory Cardiogenic Shock CARDIAC ARREST [] NO [] YES AND RESPONSIVE [] YES AND UNRESPONSIVE FRAILTY [] Moderately Frail [] Severely Frail [] Very Severely Frail [] Terminally Ill OTHER PATIENT CHARACTERISTICS [] At Least Moderate Aortic Stenosis [] Surgical Turn Down CONGESTIVE HEART FAILURE (NYHA Classification) [] I [] II [] III [] IV STRESS TEST: EXTENT OF ISCHEMIA [] Low Risk (<1% annual risk of or SC) [] Intermediate Risk (1-3% annual risk of or SC [x] High Risk (>3% annual risk of or SC) LESION CHARACTERISTICS (HIGH RISK Type C LESIONS) [x] Diffuse Length (> 2 cm) [] Excessive Tortuosity of Proximal Segment [x] Extremely Angulated Segments > 90 degrees [x] Bifurcation Lesion (with the inability to protect major side branches) [] Degenerated Vein Grafts with Friable Segments [] Chronic Total Occlusion (> 3 mos) and/or bridging collaterals OTHER HIGH RISK CHARACTERISTICS [] In-Stent Thrombosis [x] Heavily Calciified [] High Risk Coronary Segment (LEFT MAIN OR PROX LAD) Rahul Vega MD CV CARDIAC CATH PROCEDUR ES Final Result * (ABNORMAL) POCT Activated clotting time, low range (01/02/2025 12:57 PM CDT) ACT >400(H) 123 - 168 sec POC Performer [id number] [facility] Blood 01/02/2025 12:5 7 PM CDT 01/02/2025 12:57 PM CDT Rahul Vega MD LAB POCT ORDERABLES - DE VICE Final Result Performing Organization Address [facility] Co de Phone Number [facility] [address] [place] [address] * ECG 12 lead (01/02/2025 11:06 AM CDT) 01/02/2025 11:0 6 AM CDT Narrative [facility] - 01/02/2025 8:25 PM CDT Vent Rate: 61 bpm RR Interval: 976 msec PA Interval: 207 msec QRS Duration: 89 msec QT Interval: 423 msec QTC Interval: 426 msec P-R-T Crossett: 101 - 6 - -90 degrees IMPRESSION: SINUS RHYTHM WITH OCCASIONAL SUPRAVENTRICULAR PREMATURE COMPLEXES LOW QRS VOLTAGE IN PRECORDIAL LEADS [QRS DEFLECTION < 1.0 mV IN CHEST LEADS] ANTEROSEPTAL MYOCARDIAL INFARCTION , OF INDETERMINATE AGE [40+ ms Q WAVE IN V1- V4] MODERATE T-WAVE ABNORMALITY, CONSIDER LATERAL ISCHEMIA [-0.1+ mV T WAVE IN I/aVL/V5/V6] ABNORMAL ECG Electronically Signed By: Alcides Cortez MD PhD Rahul Vega MD ECG ORDERABLES Final Re sult Performing Organization Address [facility]/ZIP Co de Phone Number [employer] [facility] * NM MPI SPECT (Rest and/or Stress) Multiple Studies (12/13/2024 11:58 AM CDT) Anatomical Region Laterality Modality Body N/A Nuclear Medicine 12/13/2024 8:30 AM CDT Narrative 12/14/2024 12:49 PM CDT MPI Imaging Report Patient Name: BAILEY SHARMA A : 1945 Study Date: 12/13/2024 8:30:00 AM Gender: F Tech: Heber Dowd RN Ref Provider: RAHUL VEGA Height(Cm): 152 BSA: 1.58 Weight(Kg): 59 Heart Rate: 120 Order Provider: RAHUL VEGA PROCEDURES: Pharmacologic SPECT Report.: Myocardial perfusion imaging with Sestamibi SPECT at rest and post regadenoson (Lexiscan) infusion. INDICATIONS: R07.9 Chest pain, unspecified. FINDINGS: Procedure Data: One day rest/stress protocol was used with IV site located at left arm. Lexiscan Protocol Sestamibi injected IV at rest was 9.1 millicuries Rest SPECT imaging was performed 30 minutes post injection. Lexiscan 0.4mg given IV over 10 seconds Sestamibi injected IV post Lexiscan was 26.2 millicuries Stress SPECT Gated imaging was performed 45 minutes post Lexiscan injection. TID: 1.24 Resting HR 54 bpm Peak HR: 80 bpm Predicted Maximal HR 141 bpm Percent Max Predicted HR Achieved: 56.7 % Baseline BP: 147/63 mmHg Peak BP: 135/58 mmHg Performed By: Heber Dowd RN. ANDREA Amin. Supervising Physician: The Supervising Physician is MALCOM. Reason for Termination: Lexiscan protocol complete. Resting ECG: Sinus bradycardia. Nonspecific T wave abnormality. Borderline 1st degree block. Low QRS voltages in the precordial leads. Post Pharm ECG: No diagnostic ST changes. Arrhythmia: Rare ectopy. Cardiac Symptoms With Stress: Symptoms with stress were Dyspnea. Symptoms were resolved with rest and caffeine. BP Response: Blood pressure response is appropriate. Perfusion: There is a severe fixed count defect in the mid anterior and septal orosco which continues distally and then wraps the apex. This finding is consistent with infarction in the (usual) mid LAD territory. There is no ischemia demonstrated. LV Function: Left ventricular ejection fraction does not appear to be technically accurately assessed/quantitated. CONCLUSIONS: 1. Left ventricular ejection fraction does not appear to be technically accurately assessed/quantitated. 2. There is a severe fixed count defect in the mid anterior and septal orosco which continues distally and then wraps the apex. This finding is consistent with infarction in the (usual) mid LAD territory. There is no ischemia demonstrated. Electronically Signed By: Miguel freeman 12/14/2024 11:44:39 AM CDT Procedure Note Miguel Lemos MD - 12/14/2024 MPI Imaging Report Patient Name: BAILEY SHARMA A : 1945 Study Date: 12/13/2024 8:30:00 AM Gender: F Tech: Heber Dowd RN Ref Provider: RAHUL VEGA Height(Cm): 152 BSA: 1.58 Weight(Kg): 59 Heart Rate: 120 Order Provider: RAHUL VEGA PROCEDURES: Pharmacologic SPECT Report.: Myocardial perfusion imaging with Sestamibi SPECT at rest and postregadenoson (Lexiscan) infusion. INDICATIONS: R07.9 Chest pain, unspecified. FINDINGS: Procedure Data: One day rest/stress protocol was used with IV site located at leftarm. Lexiscan Protocol Sestamibi injected IV at rest was 9.1 millicuries Rest SPECT imaging was performed 30 minutes post injection. Lexiscan 0.4mg given IV over 10 seconds Sestamibi injected IV post Lexiscan was 26.2 millicuries Stress SPECT Gated imaging was performed 45 minutes post Lexiscaninjection. TID: 1.24 Resting HR 54 bpm Peak HR: 80 bpm Predicted Maximal HR 141 bpm Percent Max Predicted HR Achieved: 56.7 % Baseline BP: 147/63 mmHg Peak BP: 135/58 mmHg Performed By: Heber Dowd RN. ANDREA Amin. Supervising Physician: The Supervising Physician is MALCOM. Reason for Termination: Lexiscan protocol complete. Resting ECG: Sinus bradycardia. Nonspecific T wave abnormality. Borderline 1st degreeblock. Low QRS voltages in the precordial leads. Post Pharm ECG: No diagnostic ST changes. Arrhythmia: Rare ectopy. Cardiac Symptoms With Stress: Symptoms with stress were Dyspnea. Symptoms were resolved with rest andcaffeine. BP Response: Blood pressure response is appropriate. Perfusion: There is a severe fixed count defect in the mid anterior and septal wallswhich continues distally and then wraps the apex. This finding is consistent withinfarction in the (usual) mid LAD territory. There is no ischemia demonstrated. LV Function: Left ventricular ejection fraction does not appear to be technicallyaccurately assessed/quantitated. CONCLUSIONS: 1. Left ventricular ejection fraction does not appear to be technicallyaccurately assessed/quantitated. 2. There is a severe fixed count defect in the mid anterior and septalwalls which continues distally and then wraps the apex. This finding is consistentwith infarction in the (usual) mid LAD territory. There is no ischemia demonstrated. Electronically Signed By: Miguel Lemos MD [email or web address] 12/14/2024 11:44:39 AM CDT Rahul Vega MD [facility] PROCEDURES Final Result * TRANSTHORACIC ECHO (TTE) COMPLETE W DOPPLER/CF W CONTRAST (12/13/2024 8:18 AM CDT) LV EF 45 % CONS SCIMAGE Anatomical Region Laterality Modality Ultrasound 12/13/2024 7:54 AM CDT Narrative 12/14/2024 12:16 PM CDT ECHOCARDIOGRAM Patient Name: BAILEY SHARMA A : 1945 Study Date: 12/13/2024 7:54:51 AM Gender: F Tech: DMM Ref Provider: Satinder Joya Height(Cm): 155 BSA: 1.58 Weight(Kg): 58.1 BP: 145 / 60 Order Provider: RAHUL VEGA PROCEDURES: Echocardiographic Report: Transthoracic Echocardiogram with 2D, M-Mode, Spectral and Color Flow Doppler examination and administration of intravenous contrast. 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 MEASUREMENTS: 2D/MM Value Range Doppler Value Range IVSd 2D 0.82 cm [ 0.60 - 0.90 ] AV Peak Sd 1.8 m/s [ 1.0 - 1.7 ] LVIDd 2D 5.78 cm [ 3.80 - 5.20 ] AV Peak PG 12 mmHg LVIDs 2D 2.71 cm [ 2.20 - 3.50 ] AV Mean PG 7 mmHg LVPWd 2D 0.86 cm [ 0.60 - 0.90 ] AV VTI 49.9 cm EF Mod BP 50 % [ 54 - 74 ] ELICEO VTI 1.9 cm2 Estimated EF 45 % LVOT Peak Sd 1.26 m/s [ 0.70 - 1.10 ] LA Dimension 2D 4.31 cm [ 2.70 - 3.80 ] LVOT Diam 1.9 cm LA Dimension MM 2.70 cm [ 2.70 - 3.80 ] LVOT Peak PG 6 mmHg AoR Diam MM 2.18 cm [ 2.70 - 3.70 ] LVOT VTI 33.3 cm TAPSE 2.56 cm [ 1.71 - 5.00 ] MV Mean PG 2 mmHg MV E Peak Sd 1.4 m/s [ 0.6 - 1.3 ] MV A Peak Sd 1.1 m/s [ 1.0 - 1.2 ] MV Decel Time 186.5 ms [ 104.0 - 258.0 ] MV E/A Ratio 1.3 TR Peak Sd 3.1 m/s [ 1.0 - 2.8 ] TR Peak PG 38 mmHg RVSP 41.0 mmHg [ 10.0 - 36.0 ] RA Pressure 3.0 mmHg PV Peak Sd 0.9 m/s [ 0.4 - 0.8 ] PV Peak PG 3 mmHg Lat E` Sd 0.10 m/s [ 0.10 - 0.15 ] Sept E' Sd 0.07 m/s [ 0.08 - 0.15 ] E/E` 14.00 2D/MM Value Range Doppler Value Range - FINDINGS: Study Quality: Technically difficult study. Definity Contrast was employed for LV opacification and endocardial border enhancement. BP: Blood pressure: 145/60 mmHg. Left Ventricle: Mild left ventricular systolic dysfunction. Ejection Fraction is estimated to be 45 %. Normal left ventricular diastolic function. Mild enlargement of left ventricle. LV wall thickness is within normal limits. There is severe hypokinesis/akinesis of the mid anteroseptal segment in the [id number]-tr-[id number] anterior segment. This hypokinesis extends to the distal level and then wraps around the apex. Right Ventricle: Normal right ventricular systolic function. Normal right ventricular size. Left Atrium: The left atrium is normal in size. Right Atrium: The right atrium is normal in size. Atrial Septum: Normal appearing atrial septum. Cannot exclude PFO by atrial septal color Doppler interrogation. Mitral Valve: Normal appearance of the mitral valve leaflets. Mitral stenosis is absent. Trace mitral valve regurgitation. Aortic Valve: Grossly normal appearing aortic valve. Aortic valve appears tricuspid in configuration. Mild aortic stenosis. Mild or mild-moderate aortic valve regurgitation. Tricuspid Valve: Normal appearance of the tricuspid leaflets. Mild tricuspid regurgitation. There is at least mild pulmonary hypertension. Pulmonic Valve: Pulmonic valve not well visualized. There is no pulmonic stenosis. There is no pulmonic regurgitation. Pericardium: No significant pericardial effusion. Aortic Root and Aorta: Normal caliber aortic root. Aortic Arch: The aortic arch is poorly visualized. IVC: Normal appearance of the inferior vena cava. CONCLUSIONS: 1. Mild left ventricular systolic dysfunction. Ejection Fraction is estimated to be 45 %. Normal left ventricular diastolic function. Mild enlargement of left ventricle. LV wall thickness is within normal limits. There is severe hypokinesis/akinesis of the mid anteroseptal segment in the [id number]-rz-[id number] anterior segment. This hypokinesis extends to the distal level and then wraps around the apex. 2. Normal right ventricular systolic function. Normal right ventricular size. 3. Grossly normal appearing aortic valve. Aortic valve appears tricuspid in configuration. Mild aortic stenosis. Mild or mild-moderate aortic valve regurgitation. 4. Normal appearance of the tricuspid leaflets. Mild tricuspid regurgitation. There is at least mild pulmonary hypertension. Electronically Signed By: Miguel freeman 12/14/2024 12:15:28 PM CDT Procedure Note Miguel Lemos MD - 12/14/2024 ECHOCARDIOGRAM Patient Name: BAILEY SHARMA A : 1945 Study Date: 12/13/2024 7:54:51 AM Gender: F Tech: [facility] Ref Provider: Satinder Joya Height(Cm): 155 BSA: 1.58 Weight(Kg): 58.1 BP: 145 / 60 Order Provider: RAHUL VEGA PROCEDURES: Echocardiographic Report: Transthoracic Echocardiogram with 2D, M-Mode, Spectral and Color FlowDoppler examination and administration of intravenous contrast. 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 MEASUREMENTS: 2D/MM Value Range Doppler ValueRange IVSd 2D 0.82 cm [ 0.60 - 0.90 ] AV Peak Sd 1.8 m/s[ 1.0 - 1.7 ] LVIDd 2D 5.78 cm [ 3.80 - 5.20 ] AV Peak PG 12mmHg LVIDs 2D 2.71 cm [ 2.20 - 3.50 ] AV Mean PG 7 mmHg LVPWd 2D 0.86 cm [ 0.60 - 0.90 ] AV VTI 49.9cm EF Mod BP 50 % [ 54 - 74 ] ELICEO VTI 1.9cm2 Estimated EF 45 % LVOT Peak Sd 1.26 m/s[ 0.70 - 1.10 ] LA Dimension 2D 4.31 cm [ 2.70 - 3.80 ] LVOT Diam 1.9 cm LA Dimension MM 2.70 cm [ 2.70 - 3.80 ] LVOT Peak PG 6 mmHg AoR Diam MM 2.18 cm [ 2.70 - 3.70 ] LVOT VTI 33.3cm TAPSE 2.56 cm [ 1.71 - 5.00 ] MV Mean PG 2 mmHg MV E Peak Sd 1.4 m/s [ 0.6 - 1.3 ] MV A Peak Sd 1.1 m/s [ 1.0 - 1.2 ] MV Decel Time 186.5 ms [ 104.0 - 258.0 ] MV E/A Ratio 1.3 TR Peak Sd 3.1 m/s [ 1.0 - 2.8 ] TR Peak PG 38 mmHg RVSP 41.0 mmHg [ 10.0 - 36.0 ] RA Pressure 3.0 mmHg PV Peak Sd 0.9 m/s [ 0.4 - 0.8 ] PV Peak PG 3 mmHg Lat E` Sd 0.10 m/s [ 0.10 - 0.15 ] Sept E' Sd 0.07 m/s [ 0.08 - 0.15 ] E/E` 14.00 2D/MM Value Range Doppler ValueRange - FINDINGS: Study Quality: Technically difficult study. Definity Contrast was employed for LVopacification and endocardial border enhancement. BP: Blood pressure: 145/60 mmHg. Left Ventricle: Mild left ventricular systolic dysfunction. Ejection Fraction is estimatedto be 45 %. Normal left ventricular diastolic function. Mild enlargement of leftventricle. LV wall thickness is within normal limits. There is severe hypokinesis/akinesis ofthe mid anteroseptal segment in the zyx-wn-zxqcet anterior segment. Thishypokinesis extends to the distal level and then wraps around the apex. Right Ventricle: Normal right ventricular systolic function. Normal right ventricularsize. Left Atrium: The left atrium is normal in size. Right Atrium: The right atrium is normal in size. Atrial Septum: Normal appearing atrial septum. Cannot exclude PFO by atrial septal colorDoppler interrogation. Mitral Valve: Normal appearance of the mitral valve leaflets. Mitral stenosis is absent.Trace mitral valve regurgitation. Aortic Valve: Grossly normal appearing aortic valve. Aortic valve appears tricuspid inconfiguration. Mild aortic stenosis. Mild or mild-moderate aortic valve regurgitation. Tricuspid Valve: Normal appearance of the tricuspid leaflets. Mild tricuspid regurgitation.There is at least mild pulmonary hypertension. Pulmonic Valve: Pulmonic valve not well visualized. There is no pulmonic stenosis. Thereis no pulmonic regurgitation. Pericardium: No significant pericardial effusion. Aortic Root and Aorta: Normal caliber aortic root. Aortic Arch: The aortic arch is poorly visualized. IVC: Normal appearance of the inferior vena cava. CONCLUSIONS: 1. Mild left ventricular systolic dysfunction. Ejection Fraction isestimated to be 45 %. Normal left ventricular diastolic function. Mild enlargement of leftventricle. LV wall thickness is within normal limits. There is severe hypokinesis/akinesis ofthe mid anteroseptal segment in the ctm-vb-xccfys anterior segment. Thishypokinesis extends to the distal level and then wraps around the apex. 2. Normal right ventricular systolic function. Normal right ventricularsize. 3. Grossly normal appearing aortic valve. Aortic valve appears tricuspidin configuration. Mild aortic stenosis. Mild or mild-moderate aortic valveregurgitation. 4. Normal appearance of the tricuspid leaflets. Mild tricuspidregurgitation. There is at least mild pulmonary hypertension. Electronically Signed By: Miguel Lemos MD mobap 12/14/2024 12:15:28 PM CDT us Rhaul Vega MD CV ECHO PROCEDURES Final Result * eGFR (07/17/2024 3:40 PM [...] 07/17/2024 4:14 PM CDT us Lulatresa Abernathy [employer] TORCH OPERATOR LAB BLOOD ORDERABLES Adriana l Result Performing Organization Address [facility] Co de Phone Number ANIKABRANDYN LAWTON [address] [place] [address] * (ABNORMAL) Albumin Creatinine Ratio, Urine (07/17/2024 3:40 PM CDT) Albumin Ur 16.9 mg/L Comment: Interpretive Data No reference range established. Current interpretive data was last revised 2019. Creatinine Ur 50.6 mg/dL [facility] Comment: Interpretive Data No reference range established. Current interpretive data was last revised 2019. Albumin Creatinine Ratio, Ur 33(H) 1 - 29 mg/g [facility] Urine 07/17/2024 3:40 PM CDT 07/17/2024 4:07 PM CDT us Lula Abernathy NP LAB URINE ORDERABLES Adriana l Result Performing Organization Address City/[facility]/ZIP Co de Phone Number ANIKABRANDYN [address] Department [employer] [place], [place] [id number] * Lipid panel (07/17/2024 3:40 PM CDT) [...] 2018. LDL, calculated 60 <=129 mg/dL PR[facility] Comment: Interpretive Data Ages < [...] NCEP Expert Panel. Circulation 2004;110:227 3. Carlo M et al. OLENA Cardiol. 2019January 30;5(5):540-548. doi: [...] LAB BLOOD ORDERABLES Adriana l Result [place] [id number] [place] [address] * HM DIABETES EYE EXAM (07/08/2024 8:44 AM CDT) Historical Provider HEALTH MAINTENANCE Final Result * Screening Mammogram Bilateral W Rajinder (06/24/2022 10:24 AM CDT) Anatomical Region Laterality Modality Breast Bilateral Mammography Narrative 06/27/2022 9:44 AM CDT Mammogram Technique: Bilateral Digital Breast Tomosynthesis, Bilateral C-view 2D Screening mammogram. Views obtained: bilateral craniocaudal and bilateral mediolateral oblique. Computer Aided Detection was performed. Mammogram Findings: The present examination has been compared to prior imaging studies performed at [facility] on 06/06/2018, 06/12/2019 and 05/04/2021. [...] compared to prior imaging studies performed at [facility] on 06/06/2018,06/12/2019 and 05/04/2021. The [...] Recently Relevant to Health Maintenance Insurance MEDICARE [place] MEDICARE [facility] MEDICARE [facility] [place] [address] Advance Directives For more information, please contact: [phone] * Full Code (Latest Code Status on File) Date Activated Date Inactivated Comments 03/26/2022 5:53 AM 03/28/2022 9:56 PM Care Teams [employer] White Printer Operator Relationship Specialty Start Date End Date Satinder Joya DO [address] [place], [place] [id number] PCP - General Internal Medicine 12/04/24 Chadwick Morel MD [id number] [place] [address] 10/11/19 Edelmira Arango NP [address] [facility] [address] [place] [address] Nurse Practitioner Cardiology 03/28/22
--- OUTSIDE RECORDS SUMMARY | 2025-03-14 10:38 | XMS_ITS | Referral Summary ---
Author Organization [facility] Address [address] [place] [address] Care Team Providers Care Gym Attendant Name Role Phone Chadwick Morel MD Unavailable Edelmira Arango NP Unavailable [phone] Satinder Joya DO Primary Care Provider [phone] Encounters Date Type Department Care Team Description 03/03/2025 10:30 AM CDT Ancillary Procedure [facility] [address] [facility] [address] [place] [address] Presence of cardiac pacemaker (Primary Dx); SSS (sick sinus syndrome) (HCC) 02/25/2025 9:00 AM CDT Office Visit [facility] Medical [facility] Cardiology [address] [facility] [address] [place] [address] Susan Jacobo PA 02/17/2025 Telephone [facility] Medical Group Diabetes and Endocrinology [address] [place] [phone] Lula Abernathy NP Med Refill 01/17/2025 Orders Only [facility] Diabetes and Endocrinology [address] [place] [phone] ProviderJavier MD 01/17/2025 Telephone [facility] Cardiology [address] [facility] [address] [place] [address] Rahul Vega MD 01/13/2025 9:00 AM CDT Office Visit [facility] Diabetes and Endocrinology [address] [place] [phone] Lula Abernathy, GURMEET Type 2 diabetes mellitus with diabetic polyneuropathy, with long-term current use of insulin (HCC) (Primary Dx); Hypertension associated with diabetes (HCC); Hyperlipidemia associated with type 2 diabetes mellitus (HCC) 01/03/2025 Telephone [facility] Cardiology [address] [place] [address] [address], [place] [address] Rahul Vega MD Scheduling Appointments 01/03/2025 Telephone [facility] [address] [facility] [address] [place] [phone] Aditya Doyle EP-C CRN Follow Up 01/02/2025 12:19 PM CDT - 01/02/2025 1:54 PM CDT Surgery [facility] [address] [place] [phone] Rahul Vega MD LEFT HEART CATHETERIZATION WITH CORONARY ANGIOGRAPHY AND WITH OR WITHOUT LEFT VENTRICULOGRAM [id number] 01/02/2025 10:44 AM CDT - 01/02/2025 4:33 PM CDT Hospital Encounter [facility] [address] [place] [phone] Rahul Vega MD Chest pain, unspecified type Discharge Disposition: Discharge to home or self care 12/23/2024 Telephone [facility] Cardiology [address] [place] [address] [address], [place] [address] Rahul Vega MD Cath Scheduling 12/23/2024 Results Follow-Up [facility] Cardiology [address] [place] [address], [place] [address] Rahul Vega MD NM MPI SPECT (Rest and/or Stress) Multiple Studies, Transthoracic Echo (TTE) Complete W Doppler/CF 12/13/2024 8:30 AM CDT Ancillary Procedure [facility] Cardiology [facility] [facility] [address] [place] [phone] Chest pain, unspecified type 12/13/2024 7:30 AM CDT Ancillary Procedure [facility] Group Cardiology [address] [facility] [address] [place] [address] Hypertension associated with diabetes (HCC) from Last 3 Months Allergies Active Allergy Reactions Criticality Noted Date Comments Metformin Diarrhea Low 01/17/2022 Medications sertraline (ZOLOFT) 25 mg tablet Take 1 tablet (25 mg total) by mouth daily 07/01/20 Active traZODone (DESYREL) 50 mg tablet Take 0.5 tablets (25 mg total) by mouth nightly as needed for sleep Active BD Ronit 2nd Gen Pen Needle 32 gauge x needle USE TO INJECT INSULIN ONCE DAILY 10/31/19 Active atorvastatin (LIPITOR) 10 mg tabletIndicat ions:Hyperlip idemia associated with type 2 diabetes mellitus ([facility]) Take 1 tablet (10 mg total) by mouth daily 90 tablet 3 07/11/20 24 025 Active amLODIPine (NORVASC) 5 mg tabletIndicat ions:Hyperten pierce associated with diabetes ([facility]) Take 1 tablet (5 mg total) by mouth daily 90 tablet 3 07/11/20 24 025 Active insulin glargine 100 unit/mL (3 mL) pen for injectionIndi cations: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, with long-term current use of insulin ([facility]) Inject 10 Units under the skin daily 15 mL 2 07/11/20 24 025 Active Additional Information Patient taking differently: 8-10 Unitssubcutaneous Daily, Reported on 02/25/2025 Accu-Chek Guide test strips stripIndicati ons: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, with long-term current use of insulin ([facility]) Check blood sugar daily 100 strip 3 07/11/20 24 Active Januvia 100 mg tabletIndicat ions: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, with long-term current use of insulin ([facility]) TAKE 1 TABLET(100 MG) BY MOUTH DAILY 90 tablet 3 10/21/19 25 Active pen needle, diabetic (BD Ronit 2nd Gen Pen Needle) 32 gauge x 5/32 needleIndicat ions: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, with long-term current use of insulin (HCC) USE TO INJECT INSULIN ONCE DAILY 100 each 11 11/13/19 25 Active losartan (COZAAR) 50 mg tablet Take 1 tablet (50 mg total) by mouth daily 30 tablet 11 12/05/19 25 026 Active aspirin 81 mg enteric coated tablet Take 1 tablet (81 mg total) by mouth daily 30 tablet 01/03/20 25 026 Active ciprofloxacin (CIPRO) 250 [...] mg total) by mouth daily 90 tablet 01/14/20 25 Active clopidogreL (PLAVIX) 75 mg tablet Take 6 tablets (450 mg total) by mouth daily for 1 day, THEN 1 tablet (75 mg total) daily. on February 01 pt was advised to jose/elba Francisco; she will start clopidogrel 75 mg once [...] like to establish care with a general safety and skill based pay manager -The patient's device was interrogated today and found to be functioning appropriately. No significant programming changes were made at this time. The patient will continue to be followed through the [facility] device clinic remotely and with in office device interrogations as needed. EKG upon my review today demonstrates sinus rhythm (50) with normal TX, QRS duration, and QT interval. -follow-up in [...] exam (05/02/23 no DMR/DME). Saw 07/2024 at [facility]; letter sent to get report. Strive [...] mychart. Aware to check results/results letter in [facility]. Will contact by phone if needed. UTD on DM eye exam (05/02/23 no DMR/DME). Saw last week at [facility]; letter sent to get report. Strive [...] infection. Assessment & Plan (09/11/2023 10:48 AM DIAMOND PICKER): Chronic problem. A1c has greatly worsened from 7.0% 05/2023 to now 9.2% after med changes 05/2023. Will restart the basaglar 10 units every day. To send [employer] message with update if any questions/concerns. Current [...] months Assessment & Plan (11/07/2022 12:04 PM DIAMOND PICKER): Chronic, overall fairly controlled Advise to decrease [...] Will update labs. Verified that she uses [employer]. Aware to check results/results letter in [facility]. Will contact by phone if needed. Assessment & Plan (01/15/2024 10:07 AM CDT): Chronic problem. Controlled on current Lisinopril 40mg daily, amlodipine 5mg daily Assessment & Plan (09/11/2023 10:03 AM DIAMOND PICKER): Chronic problem. Controlled on current Lisinopril 40mg daily, amlodipine 5mg daily Assessment & Plan (05/22/2023 10:37 AM CDT): Chronic, uncontrolled Increase amlodipine to 5 mg Continue lisinopril 20 mg oral daily Advised home blood pressure monitoring Low-salt diet Follow-up in 3 months Assessment & Plan (11/07/2022 12:03 PM DIAMOND PICKER): Pt has white coat syndrome BP today [...] taking Atorvastatin 10mg. Last lipid panel: 05/22/23 ELT=625, TG=84. Will update labs. Verified that she uses [facility]. Aware to check results/results letter in [facility]. Will contact by phone if needed. Assessment & Plan (01/15/2024 10:07 AM CDT): Chronic problem. Currently taking Atorvastatin 10mg. Last lipid panel: 05/22/23 XBY=549, TG=84. Assessment & Plan (09/11/2023 10:04 AM DIAMOND PICKER): Chronic problem. Currently taking Atorvastatin 10mg. Last lipid panel: 05/22/23 FQL=032, TG=84. Assessment & Plan (05/22/2023 10:38 AM CDT): Chronic, stable Continue statin therapy Recheck lipid panel today Assessment & Plan (11/07/2022 12:02 PM DIAMOND PICKER): Patient on statin therapy Tolerating well Assessment [...] disease 03/19/2020 07/11/2024 Well child examination 03/19/202007/11 Immunizations Immunization Administration Dates Next Due Hep [...] on file Legal Sex Female 2:33 AM DIAMOND PICKER Gender Identity Female 05/11/2022 8:58 AM CDT [...] 02/25/2025 8:45 AM CDT Plan of Treatment Not on file Medical Devices Implanted Type Area Fuse Coiler Device Identifier Shelf Expiration Date Model / Serial / Lot [employer] Feng Lead 7841 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 Essentio 4.45x5.02cm 2 Chamber Is1 Connector .75cm Pacemaker 13.7 L111 - [id number] - [id number] Implanted:Qty: 1 on 05/24/2022 by Chacho Reece MD at [facility] Pacemaker [employer] C.R.M. [id number] 03/26/2024 L111 / [id number] / [employer] Feng Synergy Xd Monorail 3mm 20mm 144cm Delivery System 1 Access Port [id number] - S0 - [id number] Implanted:Qty: 1 on 01/02/2025 by Rahul Vega MD at [facility] Stent [employer] Feng 06/24/2026 [id number] / 0 / [id number] [employer] Feng Synergy Xd Monorail 3mm 32mm 144cm Delivery System 1 Access Port [id number] - S0 - [id number] Implanted:Qty: 1 on 01/02/2025 by Rahul Vega MD at [facility] Stent [employer] Feng 01/08/2026 [id number] / 0 / [id number] Procedures Procedure Name Priority Date/Time Associated Diagnosis [...] insulin (HCC) HM DIABETES EYE EXAM Routine 07/08/2024 8:44 AM [...] 79 y.o. female This patient received a [employer] Pacemaker. They had a routine remote [...] to ERICKA Episodes last 90 days/Comments: AF Winn 0 % No ventricular high rate NORMAL DEVICE FUNCTION PROGRAMMED MEDICATIONS: Anti-coagulant(s): , aspirin 81 mg daily Plavix 75 mg daily Anti-arrhythmic(s): Norvasc 5 mg daily PLAN: 1) [employer] Pacemaker evaluation 2) [employer] remote transmission scheduled in 3 months. 3) Programming appropriate for device measurements Jasmyn He RN us Andrea Mccarthy MD CV CARDIAC SERVICES PRO CEDURES Final Result * (ABNORMAL) POCT hemoglobin A1c (01/13/2025 8:53 AM CDT) Hemoglobin A1C, POC 7.0 4.0 - 5.6 % Blood 01/13/2025 8:53 AM CDT Lula Abernathy NP POINT OF CARE TEST ORDERA BLES Final Result * POCT glucose (01/13/2025 8:53 AM CDT) Glucose Blood, POC 112 mg/dL Blood 01/13/2025 8:53 AM CDT us Lula Abernathy NP POINT OF CARE TEST ORDERA BLES Final Result * ECG 12 lead (01/02/2025 1:45 PM CDT) 01/02/2025 1:45 PM CDT Narrative [facility] - 01/02/2025 8:21 PM CDT Vent Rate: 50 bpm RR Interval: 1199 msec TX Interval: 229 msec QRS Duration: 91 msec QT Interval: 462 msec QTC Interval: 434 msec P-R-T Columbia: 266 - -11 - 245 degrees IMPRESSION: [...] Vega MD ECG ORDERABLES Final Re sult [facility] * LEFT HEART CATHETERIZATION WITH CORONARY ANGIOGRAPHY AND WITH AND WITHOUT LEFT VENTRICULOGRAM (01/02/2025 1:21 PM CDT) Anatomical Region Laterality Modality X-Ray Angiograph y Narrative 01/02/2025 1:47 PM CDT Images from the original result were not included. [facility] [place] [facility] [facility], [address], [facility] Left Heart Catheterization Procedure Report Attending Physician: Rahul Vega MD, [facility] Pre-Diagnosis: Abnormal stress test Post-Diagnosis: CAD Ms. [...] and draped in sterile fashion. A 6 Danish sheath was inserted in the Right Radial [...] guidelines - TR band x2 hours Rahul Elmo Vega, MD 01/02/2025 1:[address] [facility] PCI RISK CALCULATOR PCI INDICATIONS New Onset [...] Low Risk (<1% annual risk of or OR) [] Intermediate Risk (1-3% annual risk of or OR [x] High Risk (>3% annual risk of or OR) LESION CHARACTERISTICS (HIGH RISK Type C LESIONS) [...] >400(H) 123 - 168 sec POC Performer [id number] [facility] Blood 01/02/2025 12:5 7 PM CDT 01/02/2025 12:57 PM CDT Rahul Vega MD LAB POCT ORDERABLES - DE VICE Final Result [facility] [address] Department [place] [address] * ECG 12 lead (01/02/2025 11:06 AM CDT) 01/02/2025 11:0 6 AM CDT Narrative [facility] - 01/02/2025 8:25 PM CDT Vent Rate: 61 bpm RR Interval: 976 msec TX Interval: 207 msec QRS Duration: 89 msec QT Interval: 423 msec QTC Interval: 426 msec P-R-T [place]: 101 - 6 - -90 degrees IMPRESSION: [...] Vega MD ECG ORDERABLES Final Re sult [facility] * NM MPI SPECT (Rest [...] demonstrated. Electronically Signed By: Miguel Lemos MD mobap 12/14/2024 11:44:39 AM CDT us Rahul Vega MD [facility] PROCEDURES Final Result * TRANSTHORACIC ECHO (TTE) COMPLETE W DOPPLER/CF W CONTRAST (12/13/2024 8:18 AM CDT) LV EF 45 % CONS SCIMAGE Anatomical Region Laterality Modality Ultrasound 12/13/2024 7:54 AM CDT Narrative 12/14/2024 12:16 PM CDT ECHOCARDIOGRAM Patient Name: BAILEY SHARMA A : 1945 Study Date: 12/13/2024 7:54:51 AM Gender: F Tech: [facility] Ref Provider: Satinder Joya Height(Cm): 155 BSA: [...] of the mid anteroseptal segment in the sar-hu-puttkt anterior segment. This hypokinesis extends to the [...] of the mid anteroseptal segment in the dhp-xg-lvfdrc anterior segment. This hypokinesis extends to the [...] hypokinesis/akinesis ofthe mid anteroseptal segment in the gji-lz-lpswtx anterior segment. Thishypokinesis extends to the distal [...] hypokinesis/akinesis ofthe mid anteroseptal segment in the doh-yr-agcvcx anterior segment. Thishypokinesis extends to the distal [...] MD mobap 12/14/2024 12:15:28 PM CDT us Rahul Vega MD CV ECHO PROCEDURES Final Result [...] Lula Abernathy NP LAB BLOOD ORDERABLES Adriana mobley Result [facility] [address] [place] [address] * (ABNORMAL) Albumin Creatinine Ratio, Urine (07/17/2024 3:40 PM CDT) Albumin Ur 16.9 mg/L Comment: Interpretive Data No reference range established. Current interpretive data was last revised 2019. Creatinine Ur 50.6 mg/dL [facility] Comment: Interpretive Data No reference range established. Current interpretive data was last revised 2019. Albumin Creatinine Ratio, Ur 33(H) 1 - 29 mg/g [facility] Urine 07/17/2024 3:40 PM CDT 07/17/2024 4:07 PM CDT us Lula Abernathy CANVASS MANAGER LAB URINE ORDERABLES Adriana ombley Result [facility] [address] Department [place] [address] * Lipid panel (07/17/2024 3:40 PM CDT) [...] revised on 2018. Triglycerides 80 <=149 mg/dL [facility] Comment: Interpretive Data Ages < or = [...] 3. Carlo Wang et al. OLENA Cardiol. 2020 January 30;5(5):540-548. doi: [email or web address].2020.0013 Current Interpretive Data was [...] last revised on 2018. Chol/HDL ratio 2 [facility] Blood 07/17/2024 3:40 PM CDT 07/17/2024 4:07 PM CDT Lula Abernathy NP LAB BLOOD ORDERABLES Adriana l Result [facility] [place] [address] [address] Department [place] [address] * DIABETES EYE EXAM (07/08/2024 8:44 AM CDT) [...] compared to prior imaging studies performed at [facility] on 06/06/2018, 06/12/2019 and 05/04/2021. The breasts [...] compared to prior imaging studies performed at [facility] on 06/06/2018,06/12/2019 and 05/04/2021. The breasts are [...] Recently Relevant to Health Maintenance Insurance MEDICARE [facility] MEDICARE [facility] MEDICARE [facility] Advance Directives For more information, please contact: [phone] * Full Code (Latest Code Status on File) Date Activated Date Inactivated Comments 03/26/2022 5:53 AM 03/28/2022 9:56 PM Care Teams Gym Attendant Relationship Specialty Start Date End Date Satinder Joya [address] [place] [address] PCP - General Internal Medicine 12/04/24 Chadwick Morel MD [address] [address] 10/11/19 Edelmira Arango NP [address] [address] Nurse Practitioner Cardiology 03/28/22
--- OUTSIDE RECORDS SUMMARY | 2025-03-14 10:38 | XMS_ITS | Encounter Summary ---
Author Organization [facility] Address [address] [facility] [place] [address] Care Team Providers Care Quality Assurance Group Leader Name Role Phone Cirilo Brown DO Primary Care Provider Encounter Details Date Type Department Care Team (Late st Contact Info) Description 10/09/2024 Lab Requisition [facility] - DermPath Lab [address] [place] [address] Yaneli Stevensno APRN-CNP [address] [place] [address] Social History Tobacco Use Types Packs/Day Years [...] Comments DERMATOPATHOLOGY Routine 10/09/2024 11:0 5 AM SHEETER WAXER OPERATOR documented in this encounter Results * DERMATOPATHOLOGY (10/09/2024 11:05 AM SHEETER WAXER OPERATOR) Case Report Dermatopathology Report Case: [id number] Authorizing Provider: Yaneli Stevenson, Collected: 10/09/2024 11:05 AM FIBER OPTIC ASSEMBLER-SAMPLE SEWER Ordering Location: [facility] - Received: 10/09/2024 03:50 PM DermPath Lab Pathologist: Yoselin Vega MD Specimen: Skin, left lat ankle 12:33 PM SHEETER WAXER OPERATOR DERMATOPATHOLOGY LABORATORY Amended Report Change in site to left lat ankle, per faxed request from office. 12:33 PM SHEETER WAXER OPERATOR DERMATOPATHOLOGY LABORATORY Final Diagnosis Specimen A. SKIN, left lat ankle: PSORIASIFORM DERMATITIS (L44.8) (see microscopic description and comment) 12:33 PM [facility] DERMATOPATHOLOGY LABORATORY Amendment electronically signed by Yoselin Vega MD on 10/16/2024 at 1233 SHEETER WAXER OPERATOR at 1208 SHEETER WAXER OPERATOR Clinical History SK vs Other; Growing Irritated Non-healing. 12:33 PM [facility] DERMATOPATHOLOGY LABORATORY Gross Description Specimen A: Received is one formalin filled container labeled with the patient's name. The specimen consists of a shave biopsy (3 pieces) measuring [id number],12x4x1,17x6 x1 mm. Jar 0. 12:33 PM [facility] DERMATOPATHOLOGY LABORATORY Microscopic Description Specimen [...] favored. Clinicopathologic correlation is recommended. 12:33 PM [facility] DERMATOPATHOLOGY LABORATORY Disclaimer An external and internal positive and negative controls are appropriate for the histochemical, immunohistochemical and immunofluorescence stain(s) in this case (if any), except where stated explicitly. The performance characteristics of the stain(s) cited in this report were developed and its performance characteristic determined by the Dermatopathology Laboratory at [facility], directed by Dr. Tino Young. These tests need not be, and therefore are not, approved by the [place] Food and Drug Administration. The tests are used for clinical purposes. Billing Codes Specimen Charges Stain Charges 63288 1 [id number] 27513 1 1 12:33 PM [facility] DERMATOPATHOLOGY LABORATORY Embedded Images 12:33 PM [facility] DERMATOPATHOLOGY LABORATORY Pathology/Cytolo gy TISSUE SPECIMEN FROM SKIN / Unknown 10/09/2024 11:05 AM SHEETER WAXER OPERATOR 10/09/2024 3:50 PM SHEETER WAXER OPERATOR Yaneli Stevenson FIBER OPTIC ASSEMBLER-SAMPLE SEWER LAB - PATH OLOGY/CYTOLOGY ORDERABLES Edited Result - Final DERMATOPATHOLOGY LABORATORY [facility] - Department of Dermatology [facility] Medicine [address] [place] [address], [address] [phone] documented in this encounter Visit Diagnoses Not on filedocumented in this encounter Care Teams Quality Assurance Group Leader Relationship Specialty Start Date End Date Cirilo Brown DO [address] [facility] [address] [place] [address] PCP - General 04/08/21 documented as of this encounter
--- OUTSIDE RECORDS SUMMARY | 2025-03-14 10:38 | XMS_ITS | Encounter Summary ---
Author Organization [facility] Address [address] [facility] [place] [address] Care Team Providers Care Head Of Conservation Name Role Phone Cirilo Brown DO Primary Care Provider Encounter Details Date Type Department Care Team (Late st Contact Info) Description 04/09/2021 Lab Requisition [facility] DermPath Lab [address] [facility], [facility] [place] [address] Mikki Snyder MD [address] [facility] [address] DEPT [place] [address] Social History Tobacco Use Types Packs/Day Years [...] AM CDT) Case Report Dermatopathology Report Case: [id number] Authorizing Provider: Mikki Snyder MD Collected: 04/08/2021 12:00 AM Ordering Location: [facility] DermPath Lab Received: 04/09/2021 09:57 AM Pathologist: Karissa España MD Specimen: Skin, left post thigh 2:06 PM CDT DERMATOPATHOLOGY LABORATORY Final Diagnosis Specimen A. SKIN, left post thigh: COMPOUND MELANOCYTIC NEVUS, IRRITATED (D22.72) 2:06 PM CDT DERMATOPATHOLOGY LABORATORY at 1406 CDT Clinical History R/O nevus, R/O atypia, irregular color. 1 2:06 PM CDT DERMATOPATHOLOGY LABORATORY Gross Description Specimen A: Received is one formalin filled container labeled with the patient's name and designated left post thigh. The specimen consists of a shave measuring [id number]. Jar 0. 1 2:06 PM CDT DERMATOPATHOLOGY [...] characteristic determined by the Dermatopathology Laboratory at [facility], directed by Dr. Tino Young. These tests need not be, and therefore are not, approved by the [place] Food and Drug Administration. The tests are used for clinical purposes. Billing Codes Specimen Charges Stain Charges 13365 1 1 2:06 PM CDT DERMATOPATHOLOGY LABORATORY Embedded Images 1 2:06 PM CDT DERMATOPATHOLOGY LABORATORY Pathology/Cytolog y TISSUE SPECIMEN FROM SKIN / Unknown 04/08/2021 04/09/2021 9:57 AM CDT Mikki Snyder MD LAB - PATHOLOGY/CYTOLOGY OR DERABLES Final Result DERMATOPATHOLOGY LABORATORY [facility] - Department of Dermatology [facility] Medicine [address] [place] [address], [address] [phone] documented in this encounter Visit Diagnoses Not on filedocumented in this encounter Care Teams Head Of Conservation Relationship Specialty Start Date End Date Cirilo Brown DO [address] [facility] [address] [place] [address] PCP - General 04/08/21 documented as of this encounter
--- OUTSIDE RECORDS SUMMARY | 2025-03-14 10:38 | XMS_ITS | Continuity of Care Document ---
Author Organization [facility] Address [address] [place] [address] Phone Care Team Providers Care Operations Examiner Name Role Phone Paz OD, Venancio Unavailable Unavailable Procedures Procedure Date Visual Field Examination(s) Eye Exam & Treatment Refraction Eye Exam & Treatment Refraction Advance Directives Directive Yes / No Effective Date File Name No Information Encounters Encounter Description Practice Location Reason(s) For Visit Diagnoses Date Provider Providers Copied on Encounter [facility], [address], [place], [place], [id number], tel:[phone] [facility] No Information 3-200 9 Paz OD Venancio. [address] , [address], [place], [address], [place]. tel:[phone] Referring Provider: Venancio Paz OD A, [address], [place], [place], [facility]. tel:[phone] [facility], [address], [place], [place], [id number], [place] tel:[phone] [facility] No Information 5-200 9 Paz OD Venancio. [address] , [address], [place], [address], [place]. tel:[phone] Referring Provider: Cirilo Brown MD, [address] [place] [address] [address], [place], [address]. tel:[phone] [facility], [address], [place], [place], [id number], [place] tel:[phone] [facility] No Information May-0 8-200 8 Paz OD Venancio. [address] , [address], [place], [address], [place]. tel:[phone] Family History Family Member Type Diagnosis Age At Onset No Information Payers Payer name Insurance type Covered alliance party ID Authoriza tiyann(s) [facility] [id number] Social History Type Description Quantity Date Captured [...]
[2025-03-14 11:12] LABS: Add Urine Microscopic? NO; Appearance Urine Clear (Clear); Bilirubin Urine Negative (Negative); Blood Urine Negative (Negative); Color Urine Yellow (Yellow); Glucose Urine UA 3+ mg/dL (Negative); Ketones Urine Negative (Negative); Leukocyte Esterase Ur Negative LEU/UL (Negative); Nitrate Urine Negative (Negative); Protein Urine Negative (Negative); Specific Grav Ur 1.026 (1.001-1.035); Urobilinogen Urine 0.2 mg/dL (<2.0)
== END 2025-03-14 10:37 | disposition home or self-care (01) ==
PROVIDERS: PCP Internal Medicine; Visit Provider Nurse Practitioner
DX: R30.0 Dysuria (principal)
CPT/HCPCS: 81003

== ENCOUNTER 2025-04-16 10:00 | Outpatient (RCR) | payer MEDICARE, BC, SELFPAY | END 2025-04-16 16:51 | disposition home or self-care (01) | LOC: ANHCPREHAB 10:00 | PROVIDERS: PCP Internal Medicine | DX: Z95.5 Presence of coronary angioplasty implant and graft (principal) | CPT/HCPCS: 93798 ==